=== PATIENT | female | born 1940 | race Caucasian/White ===

== ENCOUNTER 2018-09-26 01:28 | Outpatient (CLI) | payer MEDICARE, SELFPAY ==
--- NOTE | 2018-09-26 08:00 | SATEXT_ITS ---
Assessment: Ms. Ruiz presents for nutritional counseling for weight management nutrition therapy. She describes a long history of struggling with her weight as well as a long history of trying different methods to management her weight. She reports she is frustrated. She verbalizes that she knows how to eat healthfully. She reports that she generally eats in a controlled manner except that she has a fondness for cookies, candy, and crackers with butter. She reports that in particular, she eats crackers with butter while she cooks dinner daily as they are in the drawer near where she cooks. She states she is currently not very physically active as she needs a hip replaced and cannot move very well. She is 66 and 275 lbs. Nutritional Diagnosis: Class 3 obesity related to excess energy intake and physical inactivity. Intervention: We discussed that she does not need information on healthy eating or how much to eat. Her regular diet follows those guidelines. We worked instead on identifying some areas where she could change her behaviors. Suggested simply that she move the crackers and butter so she cannot access them while she cooks. She stated that she thought that would be a successful plan. We also came up with different ideas so as satisfy her sweet tooth. Ms. Ruiz stated she will try the alternatives we discussed. I also suggested the exercise program at [facility] which is designed to help people who have difficulty with movement. Ms. Ruiz stated that she will give them a call and check it out. Monitoring and Evaluation: 1. Ms. Ruiz will self monitor her progress on her action plans. 2. She will evaluate her nutrition care plan ongoing. At this time she does not have a follow up appointment. She has my contact information and is encouraged to follow up with me with any questions or concerns regarding her nutrition therapy. Thank you for the referral.
== END 2018-09-26 01:48 ==
PROVIDERS: PCP Family Medicine; Visit Provider Dietitian, Registered
DX: E66.9 Obesity, unspecified (principal); Z71.3 Dietary counseling and surveillance
CPT/HCPCS: 97802

== ENCOUNTER 2018-12-21 00:23 | Outpatient (CLI) | payer MEDICARE, SELFPAY ==
--- NOTE | 2018-12-21 09:44 | DI.MAMMO_ITS ---
SYMPTOMS/DIAGNOSIS: SCREENING, Z12.31 MAMMOGRAM: Mammograms were interpreted according to the usual protocol including computer analysis with CAD system, tomosynthesis and C view imaging. The breasts are of moderate radiodensity with fairly symmetrical distribution of fibroglandular tissue. No dominant mass or clumped microcalcification identified in either breast. Multiple focal areas of asymmetric density are seen bilaterally. These have a similar appearance to multiple previous examinations including December 2017, however, there is question of interval change in focal area of asymmetric density projected in the central portion of the left breast on CC and MLO views. Additional mammographic views with spot compression views of the left breast requested for further evaluation. CONCLUSION: Additional mammographic views of the left breast requested as described above. Breast ultrasound may be indicated as well depending on the results of the additional mammographic views. Category 0. Breast density Category B. MQSA ASSESSMENT OF FINDINGS: Incomplete: Needs additional imaging evaluation. Category 0. Patient will receive a letter notifying them of these results. BI-RADS category B. There are scattered areas of fibroglandular density.
== END 2018-12-21 00:43 ==
PROVIDERS: PCP Family Medicine; Visit Provider Family Medicine
DX: Z12.31 Encounter for screening mammogram for malignant neoplasm of breast (principal); R92.0 Mammographic microcalcification found on diagnostic imaging of breast
CPT/HCPCS: 77063; 77067

== ENCOUNTER 2018-12-27 00:24 | Outpatient (CLI) | payer MEDICARE, SELFPAY ==
--- NOTE | 2018-12-27 10:34 | DI.COMBO_ITS ---
SYMPTOM/DIAGNOSIS: F/U MAMMO, ? INTERVAL CHANGE IN ASYMMETRIC DENSITY CENTRAL PORTION LT BREAST LEFT BREAST ADDITIONAL VIEWS AND LEFT BREAST ULTRASOUND: Additional images are interpreted according to the usual protocol including tomosynthesis and 2D imaging. Additional mammographic views of the left breast and left breast ultrasound are interpreted in conjunction. These examinations were obtained to evaluate a questionable area of asymmetric density seen on recent mammogram. Additional mammographic views fail to show a discrete mass. Breast ultrasound shows no definite mass or cyst. CONCLUSION: No specific evidence of malignancy at this time. A follow up unilateral left breast mammogram recommended in 6 months. Category 3. Breast density, Category B. MQSA ASSESSMENT OF FINDINGS: Probably benign. Six month follow-up recommended. Category 3. Patient will receive a letter notifying them of these results. BI-RADS category B. There are scattered areas of fibroglandular density.
== END 2018-12-27 00:44 ==
PROVIDERS: PCP Family Medicine; Visit Provider Family Medicine
DX: Z12.31 Encounter for screening mammogram for malignant neoplasm of breast (principal); R92.8 Other abnormal and inconclusive findings on diagnostic imaging of breast; N64.59 Other signs and symptoms in breast
CPT/HCPCS: 76642; 77063; 77067

== ENCOUNTER → 2019-01-21 08:46 | Outpatient (BNVA) | payer MEDICARE, SELFPAY | PROVIDERS: PCP Family Medicine; Referring Provider Family Medicine; Visit Provider Physical Therapy Assistant | DX: Z12.11 Encounter for screening for malignant neoplasm of colon (principal); I10 Essential (primary) hypertension ==

== ENCOUNTER 2019-02-27 12:56 | Outpatient (CLI) | payer MEDICARE, SELFPAY | END 2019-02-27 13:16 | PROVIDERS: PCP Family Medicine; Visit Provider Surgery | DX: Z01.818 Encounter for other preprocedural examination (principal) ==

== ENCOUNTER → 2019-04-03 09:49 | Outpatient (BNVA) | payer MEDICARE, SELFPAY | PROVIDERS: PCP Family Medicine; Visit Provider Student in an Organized Health Care Education/Training Program | DX: I48.0 Paroxysmal atrial fibrillation (principal); I10 Essential (primary) hypertension; E78.00 Pure hypercholesterolemia, unspecified; Z01.810 Encounter for preprocedural cardiovascular examination | CPT/HCPCS: 99204; 99215 ==

== ENCOUNTER 2019-04-08 15:03 | Outpatient (CLI) | payer MEDICARE, SELFPAY ==
--- NOTE | 2019-04-08 14:53 | DI.RAD_ITS ---
SYMPTOM/DIAGNOSIS: LEFT KNEE PAIN LEG LENGTH EXAMINATION: Degenerative changes are seen of the knees bilaterally, right greater than left. The right lower extremity measures 95.4 cm The left lower extremity measures 96.9 cm.
--- NOTE | 2019-04-08 14:53 | DI.RAD_ITS ---
SYMPTOM/DIAGNOSIS: LEFT KNEE PAIN LEFT KNEE: Two views. There is moderate narrowing of the lateral femoral tibial joint space. There is periarticular spurring involving all joint compartments. The bones are intact and normally mineralized. The soft tissues are unremarkable. IMPRESSION: Moderate osteoarthritis of the left knee.
--- NOTE | 2019-04-08 14:53 | DI.RAD_ITS ---
SYMPTOM/DIAGNOSIS: LEFT HIP PAIN LEFT HIP: A single view is obtained. There is moderate narrowing of the joint space. Subchondral sclerosis and periarticular spurring is noted. The is a limited examination of the left hip. The soft tissues are unremarkable. IMPRESSION: Mild to moderate degenerative changes of the left hip.
== END 2019-04-08 15:23 ==
PROVIDERS: PCP Family Medicine; Referring Provider Family Medicine; Visit Provider Student in an Organized Health Care Education/Training Program
DX: M25.562 Pain in left knee (principal); M17.12 Unilateral primary osteoarthritis, left knee; M21.70 Unequal limb length (acquired), unspecified site; M25.552 Pain in left hip; M16.12 Unilateral primary osteoarthritis, left hip; M70.62 Trochanteric bursitis, left hip; I10 Essential (primary) hypertension
CPT/HCPCS: 20605; 99203; 99214; 73501; 73560; 77073; J1030

== ENCOUNTER → 2019-05-23 11:17 | Outpatient (BNVA) | payer MEDICARE, SELFPAY | PROVIDERS: PCP Family Medicine; Referring Provider Family Medicine; Visit Provider Student in an Organized Health Care Education/Training Program | DX: M25.562 Pain in left knee (principal); M25.552 Pain in left hip; I10 Essential (primary) hypertension; Z98.890 Other specified postprocedural states; M70.62 Trochanteric bursitis, left hip | CPT/HCPCS: 99213 ==

== ENCOUNTER 2019-06-24 00:59 | Outpatient (CLI) | payer MEDICARE, SELFPAY ==
--- NOTE | 2019-06-24 14:31 | DI.MAMMO_ITS ---
EXAM: MG MAMMO DIAGNOSTIC UNI CLINICAL HISTORY: F/U ABNL MAMMO, 6 MO F/U,R92.8. TECHNIQUE: Mammograms were interpreted according to the usual protocol including computer analysis w [employer] CAD system, tomosynthesis and C-view imaging. COMPARISON: Prior mammogram of December 2018 FINDINGS: Left breast mammogram was obtained today to follow areas of asymmetric density seen in left breast on most recent prior mammogram of December 2018. No significant change in appearance on today's examinati on. No new mass or clumped microcalcification. IMPRESSION: No specific evidence of malignancy, I would suggest that routine screening examinations resume with b ilateral mammogram in 6 months. Category 3, breast density category B. BI-RADS Cat 3 - Annual - Resume Annual Screening Breast Density - Category B - Scattered areas of fibroglandular density
== END 2019-06-24 01:19 ==
PROVIDERS: PCP Family Medicine; Visit Provider Family Medicine
DX: Z12.31 Encounter for screening mammogram for malignant neoplasm of breast (principal); R92.8 Other abnormal and inconclusive findings on diagnostic imaging of breast; N64.59 Other signs and symptoms in breast
CPT/HCPCS: 77061; 77065; G0279

== ENCOUNTER 2020-10-16 02:12 | Outpatient (CLI) | payer MEDICARE, SELFPAY ==
--- NOTE | 2020-10-16 | DI.MAMMO_ITS ---
EXAM: MG MAMMO SCREENING CLINICAL HISTORY: SCREENING, Z12.31 TECHNIQUE: Bilateral full field digital CC and MLO mammographic images were obtained with 3D tomosyn thesis and utilizing computer aided detection (CAD). COMPARISON: Available for comparison. FINDINGS: Masses/Architectural Distortion: Scattered fibro nodular densities are seen in both breasts. No susp icious masses or areas of architectural distortion are identified. Microcalcifications: No suspicious pleomorphic-type are seen. Skin Thickening/Nipple Retraction: None. IMPRESSION: 1. No significant interval change with no specific features of malignancy noted. 2. Unless there is more urgent need, screening mammography is recommended, as per [employer] guidelines. BI-RADS Category 2 - Benign Findings Breast Density - Category B - Scattered areas of fibroglandular density Breast density category C or D implies that the patient has dense breast tissue. Dense breast tissue is very common and is not abnormal but dense breast tissue can make it harder to find cancer on a ma mmogram. Also, dense breast tissue may increase their breast cancer risk. This information about the result of the mammogram report was provided to the patient to raise their awareness. Use this report when you speak with the patient about their risks for breast cancer, which includes their family hist ory. At that time, you may recommend for more screening tests (Ultrasound or MRI) as they might be us eful based on their risk. A negative radiographic report should not delay biopsy if a dominant or clinically suspicious mass is present. Up to ten percent of cancers are not identified on mammography. A negative report may reinforce clinical impression. Adenosis and dense breasts may obscure an underlying neoplasm. False positive reports average 6 to 10%. Patient will receive a letter notifying them of these results.
== END 2020-10-16 02:13 ==
PROVIDERS: PCP Family Medicine; Visit Provider Family Medicine
DX: Z12.31 Encounter for screening mammogram for malignant neoplasm of breast (principal)
CPT/HCPCS: 77063; 77067

== ENCOUNTER 2020-12-30 16:28 | Outpatient (REF) | payer MEDICARE, SELFPAY ==
[2020-12-30 14:08] LABS: HCT 40.4 % (36.0-46.0); HGB 12.4 g/dL (11.2-15.7); MCH 23.6 pg (27.0-33.0); MCHC 30.7 % (32.0-36.0); MPV 10.2 fL (8.0-11.0); Platelet Count 246 10^3/uL (130-400); RBC 5.25 10^6/uL (3.93-5.22); RDW 17.1 % (11.7-14.6); RDW-SD 47.9 fL
[2020-12-30 14:20] LABS: ALT 21 U/L (14-59); AST 17 U/L (15-37); Albumin 3.7 g/dL (3.4-5.0); Alkaline Phosphatase 117 U/L (46-116); Anion Gap 7.6 mmol/L (3-11); BUN 20 mg/dL (7-18); Bilirubin, Total 0.6 mg/dL (0.2-1.0); CO2 29.4 mmol/L (21.0-32.0); CREATININE 0.8 mg/dL (0.55-1.02); Calcium 8.9 mg/dL (8.5-10.1); Calculated LDL 138 mg/dL (<100); Chloride 109 mmol/L (98-107); Cholesterol 206 mg/dL (<200); Glucose 96 mg/dL (74-106); HDL Cholesterol 43 mg/dL (40-60); Potassium 4.4 mmol/L (3.5-5.1); Sodium 146 mmol/L (136-145); Total Protein 6.9 g/dL (6.4-8.2); Triglyceride 128 mg/dL (<150)
== END 2020-12-30 16:29 | disposition home or self-care (01) ==
LOC: NCHCN 16:28
PROVIDERS: PCP Family Medicine; Visit Provider Family Medicine
DX: I10 Essential (primary) hypertension (principal); I48.91 Unspecified atrial fibrillation; E66.9 Obesity, unspecified
CPT/HCPCS: 80053; 80061; 85027

== ENCOUNTER → 2021-05-27 08:47 | Outpatient (BNVA) | payer MEDICARE, SELFPAY | PROVIDERS: PCP Family Medicine; Referring Provider Family Medicine; Visit Provider Physical Therapy Assistant | DX: Z12.11 Encounter for screening for malignant neoplasm of colon (principal); I10 Essential (primary) hypertension ==

== ENCOUNTER 2021-06-15 03:05 | Outpatient (CLI) | payer MEDICARE, SELFPAY ==
[2021-06-15 10:46] LABS: Source Nasal/Nares
[2021-06-15 14:40] LABS: COVID-19 PCR Negative (Negative)
== END 2021-06-15 03:06 | disposition home or self-care (01) ==
LOC: LBO 03:06
PROVIDERS: PCP Family Medicine; Visit Provider Surgery
DX: Z20.822 Contact with and (suspected) exposure to COVID-19 (principal); Z01.818 Encounter for other preprocedural examination
CPT/HCPCS: 87635

== ENCOUNTER 2021-06-16 06:07 | Day surgery (SDC) | payer MEDICARE, SELFPAY ==
--- NOTE | 2021-06-16 06:10 | W.COLOREPORT ---
Colonoscopy Report Date of procedure: 06/16/21 Pre-op diagnosis general: Screening and changes in bowel habits Post-op diagnosis procedure note: other (mild diverticulosis) Procedure: Colonoscopy Surgeon: Belkys Anguiano Anesthesia Type: General:No Airway (Aman Grant CRNA) Estimated blood loss (mL): 0 Pathology: none sent Complications: None Disposition: same day Indications: The patient is here for Colonoscopy pre-op. Her last screening was in 2008 and was unremarkable. She has no family history of colon cancer. She has had bowel habit changes with urgency and loose stools after eating. -Discussed colonoscopy bowel prep as well as the procedure. Discussed possible complications of the procedure to include bleeding, pain, perforation, missed small lesion/polyp, sore throat, aspiration and adverse reaction to the medications. Questions were answered to patient?s satisfaction. No guarantees were implied or given. Prep: Miralax/Dulcolax Procedure Start Time: 07:38 Procedure End Time: 08:00 Retraction Time: 13 minutes Findings: Mild sigmoid diverticulosis Procedure Description: After informed consent was obtained the patient was taken to the procedure room and placed in a left decubitous position. Monitors were applied and a time out was done. The patients name, date of , procedure, allergies to medications and metal in their body was reviewed. The patient was then sedated. Once sedated and comfortable a rectal exam was done. External exam was normal. Internal exam revealed a normal sphincter tone and no palpable masses. The scope was then introduced and retro-flexed. No internal hemorrhoids, polyps or masses were identified on retro-flexion. The scope was then advanced to the cecum without difficulty. The ileocecal vlave and appendiceal orifice were identified. The prep was adequate. The scope was then slowly retracted over 13 minutes back into the rectum. There were no polyps. There was mild sigmoid diverticulosis noted. The scope was removed and the patient was woken up and taken back to Same day surgery in stable condition. The patient tolerated the procedure well and there were no immediate complications. Follow up: The patient should follow up as needed if they develop changes in bowel habits or other new gastrointestinal complaints.
--- NOTE | 2021-06-16 06:11 | W.PM.DSUDISC ---
Discharge Plan Disposition Patient Disposition: HOME Condition: Good Discharge Details Reason For Visit: Colonoscopy Attending Provider: Belkys Anguiano Primary Care Provider: Ciera Garcia Home Meds and New Rx's Prescriptions: Continued furosemide 40 MG tablet 20 mg PO DAILY PRNRF: 0 metoprolol tartrate 100 MG tablet 100 mg PO BID RF: 0 warfarin 5 MG tablet 5 mg PO HS RF: 0 acetaminophen 500 mg Capsule 500 mg PO QID PRNRF: 0 Discontinued bisacodyl [Dulcolax (bisacodyl)] 5 mg tablet,delayed release (DR/EC) 5 mg PO ONCE Qty: 4 RF: 0 polyethylene glycol 3350 17 gram/dose powder 238 g PO ONCE Qty: 238 RF: 0 Discharge Instructions Instructions: Diverticulosis (DC) Additional Instructions: Findings: mild diverticulosis Follow up: as needed Medication: Start Warfarin tonight. Follow up with your PCP on Monday for an INR check Please call if you develop: fevers >101.5 Nausea or Vomiting Abdominal pain that is not transient Rectal bleeding that is more then a tbsp A hard abdomen and inability to pass gas DAY SURGERY UNIT POST ENDOSCOPY INSTRUCTIONS Instructions for everyone who is given Anesthesia: For your safety, please do the following for the next 24 Hours: a. Do not drive or operate dangerous equipment b. Do not drink alcohol beverages or use any recreational drugs for the first 24 hours or while taking pain medications. The medications in your body may have a reaction that can be dangerous. c. Do not make any important decisions or sign any important papers 1. Generally there are no restrictions on your activity after a day or so has gone by, but you may feel a bit fatigued for a few days. 2. After you arrive home you may have a light meal and return to a normal diet as you can tolerate it without feeling sick to your stomach. 3. After surgery, you may feel pain or discomfort. This should be only transient, but if it persists please contact your doctor. 4. If there are any questions regarding the findings of your procedure, please feel free to contact your doctor. 6. If you are unable to contact your doctor with a problem, contact the hospital at [phone]. 7. Continue all your regular medications unless directed otherwise. I understand the above instructions and have no questions. Signature of Patient or Responsible Adult Escort Date/Time Name of Responsible Adult Escort Signature of Nurse Date/Time Activity:: Activity as Tolerated Diet:: high fiber Discharge Orders Discharge Orders: Discharge Order (Routine); Ordered 06/16/21 Ordered By: Belkys Anguiano
[2021-06-16 06:46] VITALS: BP 152/80; PULSE 70; RESP 16; TEMP 35.8; O2SAT 98
[2021-06-16] MEDS: Lactated Ringers 1,000 ML 80 ML IV (07:05)
--- NOTE | 2021-06-16 07:15 | ANES.PREOP_ITS ---
General Info Date of Service Date Performed: 06/16/21 Height: 5 ft 7 in Weight: 122.9 kg Body Mass Index (BMI): 42.4 Surgical Procedure: Operation Date: 06/16/21 07:35 Proposed Procedures Side Surgeon p Colonoscopy Belkys Anguiano MD Meds Allergies and Home Medications Allergies Allergy/AdvReac Type Severity Reaction Status Date / Time erythromycin base Allergy Intermediate Swelling/Ed Verified 06/16/21 06:40 ave neomycin Allergy Mild Verified 06/16/21 06:40 lisinopril AdvReac Intermediate Nausea Verified 06/16/21 06:40 bees stings Allergy Severe Anaphylaxsi Uncoded 06/16/21 06:40 s Home Medication Medication Instructions Recorded furosemide 20 mg PO DAILY PRN 05/08/16 metoprolol tartrate 100 mg PO BID 05/08/16 warfarin 5 mg PO HS 05/08/16 bisacodyl 5 mg tablet,delayed 5 mg PO ONCE #4 tab 05/27/21 release polyethylene glycol 3350 17 238 g PO ONCE #238 g 05/27/21 gram/dose oral powder acetaminophen [Tylenol Extra 500 mg PO QID PRN 06/16/21 Strength] Current Visit Medications: Current Medications Generic Name Dose Route Start Last Admin Trade Name Freq PRN Reason Stop Dose Admin Hyoscyamine Sulfate 0.125 mg 06/16/21 06:12 Hyoscyamine 0.125 Mg Sl/Oral/Chew SL DIRECTED PRN Ringer's Solution 1,000 mls @ 80 mls/hr 06/16/21 06:00 06/16/21 07:05 IV 07/15/21 23:59 80 mls/hr INFUSION ÁNGEL Administration IV Miscellaneous Supplies 1 each 06/16/21 06:00 Iv Access IV 07/15/21 23:59 DIRECTED ÁNGEL Ondansetron HCl 4 mg 06/16/21 06:12 Ondansetron 4 Mg/2 Ml Vial IVP Q4H PRN PRN Nausea / Vomiting Sodium Chloride 0 ml 06/16/21 06:00 Normal Saline Flush 10 Ml Syr IV 07/15/21 23:59 PRN PRN Sodium Chloride 0 ml 06/16/21 06:00 Normal Saline 10 Ml Vial IJ 07/15/21 23:59 DIRECTED PRN Sterile Water 0 ml 06/16/21 06:00 Water,Injection,Sterile 10 Ml Vial IJ 07/15/21 23:59 DIRECTED PRN PFSH Active Problems Active Problems: Problem Status Onset Code Encounter for screening colonoscopy Z12.11 Degenerative joint disease of left hip M16.12 Left knee DJD M17.12 Trochanteric bursitis, left hip M70.62 Hypercholesterolemia E78.00 Essential hypertension I10 PAF (paroxysmal atrial fibrillation) I48.0 Medical History Medical History (Updated 06/16/21 @ 06:45 by Cynthia Hooks) Anemia Atrial fibrillation Bunion Chronic left hip pain Chronic pain of left knee Dermatitis Essential hypertension FH: TIFFANY-BSO (total abdominal hysterectomy and bilateral salpingo-oophorectomy) Hip joint pain History of cardioversion Pt states multiple attemts to cardiovert, successful s/p sleep study w/3mo trial on CPAP. Hx of cataract Hx of ectopic Ruptured Hx of hematuria Hypercholesterolemia Incontinence Obesity BREEZY on CPAP PAF (paroxysmal atrial fibrillation) F/U with PCP Ciera Garcia Surgical History Surgical History (Updated 06/16/21 @ 06:44 by Cynthia Hooks) History of appendectomy History of right oophorectomy Hx of breast biopsy left Hx of colonoscopy Pt states virtual colonoscopy 2006 Hx of hysterectomy Hx of tooth extraction Tobacco Smoking/Tobacco Use Status: Former Tobacco Use Alcohol Alcohol Intake: current Alcohol intake frequency: holidays/special occasions only Alcohol type: hard liquor Substance Use Substance use: Never Substance use type: does not use Details: alcohol: about a year Vital Signs and Lab Results Vital Signs Most Recent Vital Signs in EMR: Most Recent Vital Signs Temp Pulse Resp BP Pulse Ox 35.8 C L 70 16 152/80 H 98 06/16/21 06:46 06/16/21 06:46 06/16/21 06:46 06/16/21 06:46 06/16/21 06:46 Lab Results Blood Type / Crossmatch: No Data to Display Complete Blood Count: No Data to Display Complete Metabolic Panel: No Data to Display Liver Function Panel: No Data to Display Coagulation Panel: No Data to Display Cardiac Panel: No Data to Display Arterial Blood Gas: No Data to Display Venous Blood Gas: No Data to Display Pancreas Panel: No Data to Display Thyroid Panel: No Data to Display Infectious Disease: Coronavirus (COVID-19)(PCR) Negative (Negative) 06/15/21 08:38 06/15/21 Coronavirus 2019 Source Nasal/Nares 06/15/21 08:38 06/15/21 Blood Cultures: No Data to Display Toxicology Panel: 2 No Data to Display Anesthesia Assessment and Plan Anesthesia History Personal History: No History of Anesthesia Complications Family History: No Family History of Anesthesia Complications Exercise Tolerance Exercise Tolerance: Metabolic Equivalents>4 Pertinent Negatives Pertinent Negatives: No Symptoms of GERD, No Major Cardiovascular Symptoms or Complaints (2 cardioversions for rapid atrial fibrillation) and No Major Pulmonary Symptoms or Complaints (BREEZY uses CPAP religiously) Cardiac & Pulmonary Exam Cardiac Exam: Normal S1/S2 Heart Sounds and Other Pulmonary Exam: Clear Bilateral Breath Sounds Airway Exam Known Difficult Airway: No Mallampati Class: 3 Mouth Opening: Normal (> 3cm) Thyromental Distance: Less than 3 cm Neck Range of Motion: Full ROM Neck Circumference: Thick Teeth Condition: Normal Dentition Airway Comments: Crowns in back x 2 ASA Classification ASA Score: ASA 3 Emergency Case?: No NPO Status NPO Status: NPO Clears >2 hours, Solids >8 hours Anesthesia Plan Resuscitation Status: Full Code Anesthesia Technique: General Anesthesia Airway Planned: Natural Airway Monitors Used: Standard Monitors
[2021-06-16 07:17] VITALS: BMI 42.4
[2021-06-16 08:10] VITALS: BP 104/55; PULSE 68; RESP 18; TEMP 36.1; O2SAT 95
--- NOTE | 2021-06-16 08:10 | W.ANESPOSTOP ---
Postoperative Evaluation Date, Time and Location Date Performed: 06/16/21 Time Performed: 08:10 Patient Location: Day Surgery Unit Vital Signs Most Recent Imported Vital Signs: Most Recent Vital Signs Temp Pulse Resp BP Pulse Ox 35.8 C L 70 16 152/80 H 98 06/16/21 06:46 06/16/21 06:46 06/16/21 06:46 06/16/21 06:46 06/16/21 06:46 Most Recent Manually Entered Vital Signs: Adult Blood Pressure: 104/55 Heart Rate: 66 Respirations: 18 Oxygen Saturation (%): 96 Temperature (C): 36.3 C Pain Score (0-10 Scale): 0 Pain Score Most Recent Pain Score: Most Recent Pain Score Pain Level 0 06/16/21 06:46 Assessment Mental Status: Awake (Alert & Oriented to Patient Baseline) Airway and Respiratory Function: Patent airway with normal (patient baseline) respiratory exam Cardiovascular Function: Hemodynamically Stable Hydration Status: Adequately Hydrated Nausea & Vomiting: No Nausea or Vomiting Pain: Pt. Denies Any Pain Peripheral Nerve Block: Patient did not receive a nerve block
[2021-06-16 08:11] VITALS: BP 104/55; PULSE 66; RESP 18; TEMPC 36.3; O2SAT 96
[2021-06-16 08:35] VITALS: BP 121/69; PULSE 63; RESP 20; TEMP 36; O2SAT 98
== END 2021-06-16 09:15 | disposition home or self-care (01) ==
PROVIDERS: PCP Family Medicine; Visit Provider Surgery
PROC: 0DJD8ZZ Inspection of Lower Intestinal Tract, Via Natural or Artificial Opening Endoscopic (ICD-10-PCS; CPT 45378; principal; 2021-06-16 07:30)
DX: Z12.11 Encounter for screening for malignant neoplasm of colon (principal); G47.33 Obstructive sleep apnea (adult) (pediatric); I10 Essential (primary) hypertension; D64.9 Anemia, unspecified; K57.30 Diverticulosis of large intestine without perforation or abscess without bleeding
CPT/HCPCS: G0121; J2001

== ENCOUNTER 2021-07-06 15:51 | Outpatient (REF) | payer MEDICARE, SELFPAY ==
[2021-07-07 20:47] LABS: Campylobacter PCR Negative (Negative); Salmonella PCR Negative (Negative); Shiga Toxin PCR Negative (Negative); Shigella/Enteroinvasive Ecoli Negative (Negative)
== END 2021-07-06 15:52 | disposition home or self-care (01) ==
LOC: NCHCN 15:51
PROVIDERS: PCP Family Medicine; Visit Provider Family Medicine
DX: K52.9 Noninfective gastroenteritis and colitis, unspecified (principal)
CPT/HCPCS: 87329; 87505; 83630; 87177

== ENCOUNTER 2021-07-28 14:26 | Emergency (ER) | payer MEDICARE, SELFPAY ==
[2021-07-28] VITALS (40 sets, daily range): BP systolic 131–160; BP diastolic 79–110; PULSE 63–147; RESP 15–29; TEMP 35.9; O2SAT 92–99
--- NOTE | 2021-07-28 14:15 | RT.EKG_ITS ---
APPROVED REPORT Exam: Resting ECG Reason for Exam: sob Patient Location: E HR:119 bpm ECG Measurements Heart Rate 119 AXIS HI [id number] P [id number] QRSd 83 QRS 16 QT 341 T 61 QTc 479 Conclusion Atrial fibrillation...V-rate 91-169, irreg A-activity Borderline ST depression, diffuse leads...ST <-0.07mV, ant/lat/inf
--- NOTE | 2021-07-28 14:45 | DI.RAD_ITS ---
Exam(s) XR CHEST 2V PA LATERAL EXAM: XR CHEST 2V PA LATERAL CLINICAL HISTORY: SOB, A-fib. TECHNIQUE: 2D digital imaging was performed. COMPARISON: CR BILATERAL HIPS ADULT from 06/28/2013 FINDINGS: Heart size is normal. The mediastinum is not widened. Lungs are clear. No infiltrates nor pleural effusions. IMPRESSION: No acute pulmonary findings. DATA REPOSITORY: RADIATION DOSE DELIVERED:
--- NOTE | 2021-07-28 14:48 | ED.GENADUL_ITS ---
Discharge Plan Disposition Patient Disposition: HOME Condition: Improving Discharge Details Clinical Impression: PAF (paroxysmal atrial fibrillation), CHF (congestive heart failure) Primary Care Provider: Ciera Garcia ED Provider: Flor Aguirre Home Meds and New Rx's Prescriptions: Continued furosemide 40 MG tablet 20 mg PO DAILY PRNRF: 0 metoprolol tartrate 100 MG tablet 100 mg PO BID RF: 0 warfarin 5 MG tablet 5 mg PO HS RF: 0 acetaminophen 500 mg Capsule 500 mg PO QID PRNRF: 0 Discharge Instructions Instructions: Heart Failure (ED), A-fib (Atrial Fibrillation) (ED) Additional Instructions: Your history, labs and exam are concerning for recurrence of your atrial fibrillation, likely associated with CHF. You received IV Lasix here. Please continue with your oral Lasix for the next 3 days, take your next dose tomorrow. Your INR was elevated at 3.4, please hold your dose tonight and discuss with your primary care tomorrow. Please take your evening dose of metoprolol today and continue with your typical dosing. Please keep your upcoming appointment with primary care. If you develop chest pain, shortness of breath, difficulty breathing, consider palpitations or other new/worsening symptoms please seek care urgently once again Referrals: Ciera Garcia [Primary Care Provider] - Discharge Data Discharge Date/Time-TO BE ENTERED AT DEPARTURE: 07/28/21 18:53 Medical Decision Making <Dora Giron - Last Filed: 07/30/21 13:15> 81-year-old female presents to the ER with chief complaint of shortness of breath and heart racing which has worsened over the last 3 to 4 days. Patient does have a history of atrial fibrillation and is on Coumadin 5 mg p.o. nightly and metoprolol 100 mg p.o. twice daily. She also does take furosemide 20 mg daily as needed. She also noted some increase bilateral lower extremity swelling which worsened today. She does have 2+ pitting edema to her bilateral lower extremities. Upon initial exam her heart rate is in the 140s, she is hypertensive. She is alert and oriented. She denies having any chest pain just shortness of breath. She denies cough or productive cough. She is vaccinated for Covid and has had a booster. Other past medical history includes obstructive sleep apnea uses a CPAP, obesity, abdominal hysterectomy she is a former smoker quit in 1959. Occasional drinker. Initial heart rate upon arrival is 144 and irregular consistent with A. fib. Work-up ordered including CBC, CMP, PT, PTT, BNP, chest x-ray EKG and serial troponins. Metoprolol 5 mg slow IV push ordered. 1508: Informed by clinical staff anesthesiologist that metoprolol was given slow IV push, patient reported improvement in the shortness of breath, heart rate is now in the mid 90s to 110, blood pressure is 154/97. Chest x-ray and labs are pending at this time. CBC is largely unremarkable, PT 33.2, INR 3.4 APTT 35.0 sodium is 146 potassium 4.5 chloride 109, GFR greater than 60 glucose 108 proBNP is 2427 which is up from 1600 in 2016. Initial troponin within normal limits. We will give 20 mg Furosemide IV. Care is to be handed off to oncoming provider WES Castaneda pending chest x- ray and repeat troponin. Discussed patient case and details with her she verbalizes understanding. Patient is hemodynamically stable and improving at the time of this dictation. <WES Garza - Last Filed: 07/28/21 18:30> Care transition myself from Tamiko Giron NP. Please see her initial note regarding history, presentation and exam. In brief, patient is a pleasant 81-year-old female with history of paroxysmal atrial fibrillation. Patient has been having palpitations for the past 3 days. Also noted increased lower extremity swelling. Patient's been diagnosed with atrial fibrillation initially having a rapid ventricular response with a heart rate in the 140s. Patient does take daily metoprolol. She is anticoagulated. Patient received 5 mg of IV Lopressor and heart rate at this time is in the 90s. Patient is asymptomatic. At the time I assumed care, chest x-ray and repeat troponin pending. Plan is to DC to home with the patient continuing with her anticoagulation and beta-abena with close follow-up with primary care. Patient repeat troponin remains within normal limits. Her INR was noted to be elevated at 3.4. We will have her hold her warfarin tonight, speak with her primary tomorrow and likely restart. Chest x-ray reviewed by radiologist: FINDINGS: Lungs: Unremarkable. No consolidation. Pleural spaces: Unremarkable. No pleural effusion. No pneumothorax. Heart/Mediastinum: Unremarkable. No cardiomegaly. Bones/joints: Unremarkable. IMPRESSION: No acute findings. Discussed these findings with the patient. Advised that she keep her metoprolol tonight. As we discussed, she will hold her warfarin today. She states that she typically checks her own INR on Fridays but will discuss warfarin dosing tomorrow with her primary care. She will continue with the metoprolol as prescribed. I advised that take her Lasix for the next 3 days. She has an appointment with her primary care next week which I encouraged that she keep. Return precautions were discussed. All of her questions and concerns were addressed and she is in agreement with plan HPI <Dora Giron - Last Filed: 07/30/21 13:15> General Mode of arrival: ambulatory . Date/Time Provider Initiated Documentation: 07/28/21 14:30 . Limitations to Documentation: no limitations . Information obtained by: patient, RN notes reviewed and old records reviewed . HPI Narrative: 81-year-old female presents to the ER with chief complaint of shortness of breath and heart racing which has worsened over the last 3 to 4 days. Patient does have a history of atrial fibrillation and is on Coumadin 5 mg p.o. nightly and metoprolol 100 mg p.o. twice daily. She also does take furosemide 20 mg daily as needed. She also noted some increase bilateral lower extremity swelling which worsened today. She does have 2+ pitting edema to her bilateral lower extremities. Upon initial exam her heart rate is in the 140s, she is hypertensive. She is alert and oriented. She denies having any chest pain just shortness of breath. She denies cough or productive cough. She is vaccinated for Covid and has had a booster. Other past medical history includes obstructive sleep apnea uses a CPAP, obesity, abdominal hysterectomy she is a former smoker quit in 1959. Occasional drinker. Related Data Home Medications Medication Instructions Recorded Confirmed furosemide 20 mg PO DAILY PRN 05/08/16 07/28/21 metoprolol tartrate 100 mg PO BID 05/08/16 07/28/21 warfarin 5 mg PO HS 05/08/16 07/28/21 acetaminophen 500 mg PO QID PRN 06/16/21 07/28/21 Allergies Allergy/AdvReac Type Severity Reaction Status Date / Time erythromycin base Allergy Intermediate Swelling/Ed Verified 07/28/21 14:37 ave neomycin Allergy Mild Verified 07/28/21 14:37 lisinopril AdvReac Intermediate Nausea Verified 07/28/21 14:37 bees stings Allergy Severe Anaphylaxsi Uncoded 07/28/21 14:37 s General Stated Complaint: Palpitatns CARINA: 2 Review of Systems <Dora Giron - Last Filed: 07/30/21 13:15> All systems reviewed & are unremarkable except as noted in HPI and below Constitutional Constitutional: Reports as per HPI Cardiovascular Cardiovascular: Denies chest pain, Denies chest pain with activity, Denies diaphoresis, Reports rapid heart rate, Reports pedal edema, Reports irregular heart rhythm, Denies claudication, Denies lightheadedness, Reports dyspnea, Reports dyspnea on exertion and Reports orthopnea Respiratory Respiratory: Denies change in phlegm color, Denies chest congestion, Denies cough, Denies hemoptysis, Denies excessive phlegm production, Reports dyspnea and Reports dyspnea on exertion Gastrointestinal Gastrointestinal: Denies abdominal pain, Denies diarrhea, Reports nausea and Denies vomiting Genitourinary Genitourinary: Denies difficulty voiding and Denies dysuria Musculoskeletal Musculoskeletal: Denies back pain and Denies myalgias PFSH <Dora Giron - Last Filed: 07/30/21 13:15> Active Problem List Encounter for screening colonoscopy (Acute) Degenerative joint disease of left hip (Acute) Left knee DJD (Acute) Trochanteric bursitis, left hip (Acute) Hypercholesterolemia (Acute) Essential hypertension (Acute) PAF (paroxysmal atrial fibrillation) (Acute) Medical History Anemia Atrial fibrillation Bunion Chronic left hip pain Chronic pain of left knee Dermatitis FH: TIFFANY-BSO (total abdominal hysterectomy and bilateral salpingo-oophorectomy) Hip joint pain History of cardioversion Pt states multiple attemts to cardiovert, successful s/p sleep study w/3mo trial on CPAP. Hx of cataract Hx of ectopic Ruptured 's Hx of hematuria Incontinence Obesity BREEZY on CPAP Surgical History History of appendectomy History of right oophorectomy Hx of breast biopsy left Hx of colonoscopy Pt states virtual colonoscopy 2005 Hx of hysterectomy Hx of tooth extraction Family History Mother Cancer Social History Smoking/Tobacco Use Status: Former Tobacco Use Quit Date: 09/11/1959 Smoking risk assessment performed?: Yes Alcohol Intake: current Alcohol Intake frequency: holidays/special occasions only Alcohol type: hard liquor Drug use: Never Substance use type: does not use Details: alcohol: about a year Do you feel safe at home: Yes Do you feel safe in your relationship?: Yes Exam <Dora Giron - Last Filed: 07/30/21 13:15> Narrative Exam Narrative: Constitutional: Alert and oriented x3. Appears stated age. Obese body habitus. Head: Normocephalic, no trauma. Eyes: Pupils PERRL, Red reflex noted, EOM's intact. Eyelids symmetrical without lesions, discharge, or swelling. ENT: Bilateral TM's WNL, External ear normal to inspection, no mastoid TTP, swelling, or erythema, Nasal turbinates WNL, no nasal discharge. Normal dentition, Posterior pharynx WNL, no exudate. Cardiovascular: Irregular rate atrial fibrillation with RVR at a rate of 144, normal S1, S2, distal pulses intact. 2+ pitting bilateral lower extremity edema noted. Resp: Lungs clear to auscultation bilaterally, no wheezes, rales, or rhonchi. Abdomen: Soft, non-distended, Normoactive bowel sounds all 4 quads. Musculoskeletal: Normal gait, 5/5 strength to all four extremities. Skin: No suspicious rashes or lesions. Capillary refill less than 2 sec. Neurologic: Cranial nerves II-XII intact. Alert and oriented x 3. Motor: No deficits noted. Sensory: Intact bilaterally all 4 extremities. Reflexes: DTR's intact bilaterally.. Hematologic/Lymphatic: No ecchymosis, no lymphadenopathy. Course <Dorasahra Giron - Last Filed: 07/30/21 13:15> Vital Signs Vital signs: Vital Signs Temperature 35.9 C L 07/28/21 14:31 Pulse 144 H 07/28/21 14:31 Respiratory Rate 29 H 07/28/21 14:31 Blood Pressure 154/110 H 07/28/21 14:31 Pulse Oximetry 97 07/28/21 14:31 Temperature 35.9 C L 07/28/21 14:31 Temperature Source Skin 07/28/21 14:31 Pulse 144 H 07/28/21 14:31 Respiratory Rate 29 H 07/28/21 14:31 Respiratory Effort Non-Labored 07/28/21 14:31 Blood Pressure 154/110 H 07/28/21 14:31 Blood Pressure Position Supine 07/28/21 14:31 Pulse Oximetry 97 07/28/21 14:31 Oxygen Delivery Method Room Air 07/28/21 14:31 Oxygen Flow Rate 0 07/28/21 14:31 Pain Level 0 07/28/21 14:31 Sign Out <Dora Giron - Last Filed: 07/30/21 13:15> Sign Out Data: Sign Out Comment: Pending repeat Trop and CXR. Afib, SOB, given 5mg Metoprolol IV and 20mg Furosemide IV Last updated by Dora Giron at 07/28/21 15:54
[2021-07-28 14:56] LABS: Abs Immature Grans 0.02 10^3/uL (0.0-0.06); Absolute Basophil Count 0.05 10^3/uL (0.0-0.2); Absolute Eosinophil Count 0.16 10^3/uL (0.0-0.7); Absolute Lymphocyte Count 2.38 10^3/uL (1.2-3.4); Absolute Monocyte Count 0.85 10^3/uL (0.1-0.8); Absolute Neutrophil Count 4.39 10^3/uL (1.2-6.7); Basophils % 0.6; HGB 12.2 g/dL (11.2-15.7); Immature Grans % 0.3; Lymphocytes % 30.3; MCH 23.1 pg (27.0-33.0); MCHC 29.8 % (32.0-36.0); MCV 77.8 fL (80-95); MPV 9.2 fL (8.0-11.0); Monocytes % 10.8; Nucleated RBC 0 %; Platelet Count 301 10^3/uL (130-400); RBC 5.27 10^6/uL (3.93-5.22); RDW 17.3 % (11.7-14.6); RDW-SD 48.7 fL; WBC 7.85 10^3/uL (4.4-10.8)
[2021-07-28] MEDS: Metoprolol 5 MG/5 ML VIAL IVP (14:59)
[2021-07-28 15:14] LABS: ALT 22 U/L (14-59); AST 12 U/L (15-37); Albumin 3.8 g/dL (3.4-5.0); Alkaline Phosphatase 113 U/L (46-116); BUN 14 mg/dL (7-18); Bilirubin, Total 0.9 mg/dL (0.2-1.0); CREATININE 0.9 mg/dL (0.55-1.02); Calcium 9.1 mg/dL (8.5-10.1); Chloride 109 mmol/L (98-107); Glucose 108 mg/dL (74-106); Magnesium 2.1 mg/dL (1.8-2.4); Potassium 4.5 mmol/L (3.5-5.1); Sodium 146 mmol/L (136-145); Total Protein 7.3 g/dL (6.4-8.2)
[2021-07-28 15:17] LABS: Troponin I < 0.05 ng/mL (<0.06)
[2021-07-28 15:18] LABS: NT-proBNP 2427 pg/mL (<300)
[2021-07-28 15:20] LABS: INR 3.4 (0.9-1.1); Prothrombin Time 33.2 sec (9.3-11.0)
[2021-07-28] MEDS: Furosemide 20 MG/2 ML VIAL IVP (15:33)
--- NOTE | 2021-07-28 17:08 | DI.VRAD_ITS ---
PROCEDURE INFORMATION: Exam: XR Chest Exam date and time: 07/28/2021 2:49 PM Age: 81 years old Clinical indication: Chest wall pain TECHNIQUE: Imaging protocol: XR of the chest. Views: 2 views. COMPARISON: No relevant prior studies available. FINDINGS: Lungs: Unremarkable. No consolidation. Pleural spaces: Unremarkable. No pleural effusion. No pneumothorax. Heart/Mediastinum: Unremarkable. No cardiomegaly. Bones/joints: Unremarkable. IMPRESSION: No acute findings. Dictated and Authenticated by: Brennan Erickson MD. Ordering:ZENIA John MD
[2021-07-28 18:08] LABS: Troponin I < 0.05 ng/mL (<0.06)
== END 2021-07-28 18:53 | disposition home or self-care (01) ==
PROVIDERS: Registered Nurse Emergency; Emergency Provider Physician Assistant; PCP Family Medicine
DX: I48.0 Paroxysmal atrial fibrillation (principal); I50.9 Heart failure, unspecified; R06.02 Shortness of breath
CPT/HCPCS: 36415; 80053; 93005; 96374; 96375; 99284; 71046; 83735; 83880; 84484; 85025; 85610; 85730; 93010; J1941

== ENCOUNTER 2021-10-08 04:02 | Outpatient (CLI) | payer MEDICARE, SELFPAY ==
[2021-10-08 13:05] LABS: Source Nasal/Nares
[2021-10-08 17:46] LABS: COVID-19 PCR Negative (Negative)
== END 2021-10-08 04:03 | disposition home or self-care (01) ==
LOC: LBO 04:06
PROVIDERS: PCP Family Medicine; Visit Provider Ophthalmology
DX: Z20.822 Contact with and (suspected) exposure to COVID-19 (principal)
CPT/HCPCS: 87635

== ENCOUNTER 2021-10-11 08:03 | Day surgery (SDC) | payer MEDICARE, SELFPAY ==
[2021-10-11 08:25] VITALS: BP 163/85; PULSE 91; RESP 18; TEMP 36; O2SAT 100
[2021-10-11] MEDS: Tropicam./Phenyleph. (1/2.5%) 5 ML BTL OD ×3 (08:38→08:56)
--- NOTE | 2021-10-11 08:40 | ANES.PREOP_ITS ---
General Info Date of Service Date Performed: 10/11/21 Height: 5 ft 8 in Weight: 127 kg Body Mass Index (BMI): 42.5 Surgical Procedure: Operation Date: 10/11/21 10:40 Proposed Procedures Side Surgeon p Cataract Extraction with IOL Implant Right Blayne Garcia MD Meds Allergies and Home Medications Allergies Allergy/AdvReac Type Severity Reaction Status Date / Time erythromycin base Allergy Intermediate Swelling/Ed Verified 10/11/21 08:33 ave neomycin Allergy Mild Verified 10/11/21 08:33 lisinopril AdvReac Intermediate Nausea Verified 10/11/21 08:33 bees stings Allergy Severe Anaphylaxsi Uncoded 10/11/21 08:33 s Home Medication Medication Instructions Recorded furosemide 20 mg PO DAILY PRN 05/08/16 metoprolol tartrate 100 mg PO BID 05/08/16 warfarin 5 mg PO HS 05/08/16 acetaminophen 500 mg PO QID PRN 06/16/21 albuterol sulfate [Ventolin HFA] 2 puff INHALATION Q4H PRN 10/08/21 epinephrine [EpiPen 2-Vipul] 0.3 mg IM ONCE 10/08/21 Current Visit Medications: Current Medications Generic Name Dose Route Start Last Admin Trade Name Freq PRN Reason Stop Dose Admin Acetaminophen 1,000 mg 10/11/21 06:00 Acetaminophen 500 Mg Tab PO Q4H PRN PRN Miscellaneous Medication 0 ml 10/11/21 06:00 Prednisolone 1%, Moxifloxacin 0.5%, Nepafenac 0.1% 5ml Btl OD DIRECTED [facility] Miscellaneous Medication 0 ml 10/11/21 06:00 10/11/21 08:38 Tropicam./Phenyleph. (1/2.5%) 5 Ml Btl OD 1 drp DIRECTED ÁNGEL Administration Tetracaine HCl 0 ml 10/11/21 06:00 Tetracaine 0.5% 4 Ml Btl OD DIRECTED [facility] PFSH Active Problems Active Problems: Problem Status Onset Code Cortical cataract of right eye H26.9 Nuclear sclerotic cataract of right eye H25.11 Encounter for screening colonoscopy Z12.11 Degenerative joint disease of left hip M16.12 Left knee DJD M17.12 Trochanteric bursitis, left hip M70.62 CHF (congestive heart failure) I50.9 Hypercholesterolemia E78.00 Essential hypertension I10 PAF (paroxysmal atrial fibrillation) I48.0 Medical History Medical History Anemia Atrial fibrillation Bunion Chronic left hip pain Chronic pain of left knee Dermatitis FH: TIFFANY-BSO (total abdominal hysterectomy and bilateral salpingo-oophorectomy) Hip joint pain History of cardioversion Pt states multiple attemts to cardiovert, successful s/p sleep study w/3mo trial on CPAP. Hx of cataract Hx of ectopic Ruptured Hx of hematuria Incontinence Obesity BREEZY on CPAP Surgical History Surgical History History of appendectomy History of right oophorectomy Hx of breast biopsy left Hx of colonoscopy 06/2021 complete colonoscopy w/ Dr. Jeannie Anguiano Pt states virtual colonoscopy 2006 Hx of hysterectomy Hx of tooth extraction Tobacco Smoking/Tobacco Use Status: Former Tobacco Use Alcohol Alcohol Intake: current Alcohol intake frequency: holidays/special occasions only Alcohol type: hard liquor Substance Use Substance use: Never Substance use type: does not use Details: alcohol: about a year Vital Signs and Lab Results Vital Signs Most Recent Vital Signs in EMR: Most Recent Vital Signs Temp Pulse Resp BP Pulse Ox 36.0 C L 91 H 18 163/85 H 100 10/11/21 08:25 10/11/21 08:25 10/11/21 08:25 10/11/21 08:25 10/11/21 08:25 Lab Results Blood Type / Crossmatch: No Data to Display Complete Blood Count: No Data to Display Complete Metabolic Panel: No Data to Display Liver Function Panel: No Data to Display Coagulation Panel: No Data to Display Cardiac Panel: No Data to Display Arterial Blood Gas: No Data to Display Venous Blood Gas: No Data to Display Pancreas Panel: No Data to Display Thyroid Panel: No Data to Display Infectious Disease: Coronavirus (COVID-19)(PCR) Negative (Negative) 10/08/21 09:00 10/08/21 Coronavirus 2019 Source Nasal/Nares 10/08/21 09:00 10/08/21 Blood Cultures: No Data to Display Toxicology Panel: No Data to Display Imaging and Studies Imaging and Studies Study information below may be from another EMR and interpreted by another provider. Please see original notes in EMR for more complete details. EKG Summary: DATE/TIME OF SERVICE: 07/28/21 1440 HR:119 bpm ECG Measurements Heart Rate 119 AXIS NC [id number] P [id number] QRSd 83 QRS 16 QT 341 T61 QTc 479 Conclusion Atrial fibrillation...V-rate 91-169, irreg A-activity Borderline ST depression, diffuse leads...ST <-0.07mV, ant/lat/inf Stress Test Summary: 12/22/2010:Indeterminate study. Follow up diagnosed with atypical chest pain that has been long standing. Echocardiogram Summary: 01/28/2016: [facility] [place]: EF 55%, Normal valves. Anesthesia Assessment and Plan Anesthesia History Personal History: No History of Anesthesia Complications Family History: No Family History of Anesthesia Complications Exercise Tolerance Exercise Tolerance: Metabolic Equivalents<4 Pertinent Negatives Pertinent Negatives: No Symptoms of GERD Cardiac & Pulmonary Exam Cardiac Exam: Normal S1/S2 Heart Sounds Pulmonary Exam: Clear Bilateral Breath Sounds Implantable Cardiac Device Does patient have a Pacemaker or an ICD?: No Airway Exam Known Difficult Airway: No Mallampati Class: 3 Mouth Opening: Normal (> 3cm) Thyromental Distance: Less than 3 cm Neck Range of Motion: Full ROM Neck Circumference: Thick Teeth Condition: Normal Dentition Airway Comments: Crowns in back x 2 ASA Classification ASA Score: ASA 3 Emergency Case?: No NPO Status NPO Status: NPO Clears >2 hours, Solids >8 hours Anesthesia Plan Resuscitation Status: Full Code Anesthesia Technique: MAC Anesthesia Airway Planned: Natural Airway Monitors Used: Standard Monitors
[2021-10-11 08:50] VITALS: BMI 42.5
[2021-10-11] MEDS: Tetracaine 0.5% 4 ML BTL OD (09:44)
[2021-10-11] MEDS: Balanced Salt Soln.-PLUS 500 ML BAG (09:45)
[2021-10-11] MEDS: Duovisc Viscoelastic System EACH 1 EACH (09:45)
[2021-10-11] MEDS: Lidocaine 2% Jelly 6 ML SYR (09:47)
[2021-10-11] MEDS: Povidone-Iodine Ophth 30 ML BTL (09:49)
--- NOTE | 2021-10-11 10:03 | W.PM.DSUDISC ---
Discharge Plan Disposition Patient Disposition: HOME Condition: Good Discharge Details Attending Provider: Blayne Garcia Primary Care Provider: Ciera Garcia Home Meds and New Rx's Prescriptions: No Action furosemide 40 MG tablet 20 mg PO DAILY PRNRF: 0 metoprolol tartrate 100 MG tablet 100 mg PO BID RF: 0 warfarin 5 MG tablet 5 mg PO HS RF: 0 albuterol sulfate [Ventolin HFA] 90 mcg/actuation Hfa Aerosol Inhaler 2 puff INHALATION Q4H PRNRF: 0 epinephrine [EpiPen 2-Vipul] 0.3 mg/0.3 mL Auto-Injector 0.3 mg IM ONCE RF: 0 acetaminophen 500 mg Capsule 500 mg PO QID PRNRF: 0 Discharge Instructions Stand Alone Forms: Post-op Topical Cataract, Braden Hedrick (DSU) Discharge Orders Discharge Orders: Discharge Order (Routine); Ordered 10/11/21 Ordered By: Blayne Garcia DS: Diagnosis Discharge Diagnosis (1) Cortical cataract of right eye: Status: Resolved (2) Nuclear sclerotic cataract of right eye: Status: Resolved
--- NOTE | 2021-10-11 10:04 | ROE_ITS ---
Date of service: 10/11/21 Time of Service: 10:04 Operative Note Operative Note DATE OF PROCEDURE: 10/11/21 PRE-OP DIAGNOSIS: Nuclear/cortical cataract, right eye POST-OP DIAGNOSIS: same PROCEDURE: Cataract extraction using phacoemulsification with intraocular lens implant, left eye SURGEON: Blayne Garcia ANESTHESIA TYPE: Local By Surgeon and MAC Refer to Anesthesia Record PATHOLOGY: none sent COMPLICATIONS: None Patient was transported to: same day Patient's condition: stable Implants: [employer] / [employer] Tecnis [id number] Indications: Progressive decreased vision due to cataract, left eye Procedure Description: CATARACT SURGERY OPERATIVE REPORT PREOPERATIVE DIAGNOSIS: 1. Nuclear/cortical cataract, right eye POSTOPERATIVE DIAGNOSIS: Same OPERATION: 1. Cataract extraction using phacoemulsification with posterior chamber intraocular lens implant, left eye. IOL: IOL Concrete Bucket Hooker/Model: [employer] Todd / KENA Tecnis [id number] IOL Power: + 17.0 diopters IOL Serial Number: [id number] Optic Diameter: 6.0 mm Haptic/Overall Diameter: 13.0 mm PHACO INFO: [employer] Vision System with OZil and Active [employer]uidics Cumulative Dispersed Energy (CDE): 8.66 seconds SURGEON: Blayne Garcia MD, TAMI ANESTHESIA: Monitored A [facility] (MAC), with local sub-tenon's anesthetic infiltration COMPLICATIONS: None SPECIMENS: None INDICATIONS FOR PROCEDURE: The patient is an 81-year-old lady with history of diminished visual acuity in her right eye secondary to the development of nuclear and cortical cataract. The option of cataract surgery was offered to the patient and she felt she was symptomatic enough that she wished to proceed. PROCEDURE: The correct surgical eye was identified and marked as the left eye and the pupil was dilated in the preoperative area using mydriatics and cycloplegics. The dilated pupil size was 6.0 mm. She elected to proceed without oral sedation. The patient was brought to the operating room where cardiopulmonary monitoring was instituted and surgical time-out was performed, confirming the correct operative eye and IOL power. Topical anesthesia was administered and ophthalmic povidone-iodine 5% was instilled into the conjunctival fornices. Lidocaine gel was applied to the cornea and the obdulia-ocular area was prepped with Betadine 10% solution and draped in the usual sterile fashion for intraocular surgery, including an a perture drape. A Tegaderm transparent film dressing was cut in half and used to cover the lashes and lid margins. Care was taken to sequester the lashes and lid margins under the Tegaderm dressing. A lid speculum was placed between the lids of the operative eye and the Cheyenne-Jeanmarie operating microscope was maneuvered into position. Jose scissors were then used to make a conjunctival buttonhole approximately 6mm posterior to the limbus in the inferonasal quadrant. Blunt dissection was carried out to expose bare sclera, and a blunt-tipped sub-tenon?s anesthesia cannula was introduced and passed posteriorly along the globe where non- preserved plain lidocaine was injected into posterior sub-Tenon?s space. A sideport knife was used to make a paracentesis port superiorly/superiortemporal ly. Intraocular phenylephrine/lidocaine was injected int the anterior chamber.. The anterior chamber was filled with viscoelastic. A 2.4mm keratome knife was used to create a half-thickness groove at the limbus and then to construct a three-plane near-clear corneal tunnel extending 2.0mm into clear cornea at the 3:00 position. A flap was raised on the anterior capsule and capsulorhexis forceps were used to complete a continuous curvilinear capsulorhexis of 5.0 mm. Balanced salt solution was then used to perform cortical cleaving hydrodissection and nuclear hydrodelineation until the lens could be freely rotated within the capsular bag. The lens nucleus was then disassembled and removed within the capsular bag and iris plane using phacoemulsification. Residual cortical material was removed using the 45-degree angled silicone I/A tip with 0.3mm port. The posterior capsule was carefully polished to remove as much residual lens epithelial cells as safely possible. The capsular bag was then inflated and the anterior chamber deepened with viscoelastic. The lens implant described above was inserted into the capsular bag using the KENA Andreafski Injector. A Kuglen hook was used to dial the IOL into position. Residual viscoelastic was then removed first from posterior to the IOL, then from the anterior chamber using the I/A handpiece. The lens implant was noted to center nicely within the capsular bag. The incisions were stromally hydrated, and the anterior chamber was reformed using BSS. Then 0.5cc of moxifloxacin 1.0mg/ml were injected into the capsular bag and anterior chamber. The incisions were checked with a Weck spear and found to be secure. Several drops of ophthalmic povidone-iodine 5% were then applied to the eye followed by two drops of Imprimis combination prednisolone/moxifloxacin/nepafenac solution. The drapes were removed and a clear plastic protective eye shield was placed over the eye. The patient was then returned to [facility] in stable condition.
[2021-10-11 10:05] VITALS: BP 148/100; PULSE 101; RESP 16; TEMP 36.4; O2SAT 99
--- NOTE | 2021-10-11 20:58 | W.ANESPOSTOP ---
Postoperative Evaluation Date, Time and Location Date Performed: 10/11/21 Time Performed: 10:10 Patient Location: Day Surgery Unit Vital Signs Most Recent Imported Vital Signs: Most Recent Vital Signs Temp Pulse Resp BP Pulse Ox 36.4 C L 101 H 16 148/100 H 99 10/11/21 10:05 10/11/21 10:05 10/11/21 10:05 10/11/21 10:05 10/11/21 10:05 Pain Score Most Recent Pain Score: Most Recent Pain Score Pain Level 0 10/11/21 10:05 Assessment Mental Status: Awake (Alert & Oriented to Patient Baseline) Airway and Respiratory Function: Patent airway with normal (patient baseline) respiratory exam Cardiovascular Function: Hemodynamically Stable Hydration Status: Adequately Hydrated Nausea & Vomiting: No Nausea or Vomiting Pain: Pt. Denies Any Pain Peripheral Nerve Block: Patient did not receive a nerve block
--- NOTE | 2022-03-18 13:10 | ROE_ITS ---
Date of service: 10/11/21 Time of Service: 10:04 Operative Note Operative Note DATE OF PROCEDURE: 10/11/21 PRE-OP DIAGNOSIS: Nuclear cataract, right eye POST-OP DIAGNOSIS: same PROCEDURE: [employer] / [employer] Tecnis [id number] SURGEON: Blayne Garcia ANESTHESIA TYPE: Local By Surgeon and MAC Refer to Anesthesia Record ESTIMATED BLOOD LOSS: 0 PATHOLOGY: none sent COMPLICATIONS: None Patient was transported to: same day Patient's condition: stable Implants: [employer] / [employer] Tecnis [id number] Indications: Progressive visual loss due to cataract, right eye Procedure Description: CATARACT SURGERY OPERATIVE REPORT PREOPERATIVE DIAGNOSIS: 1. Nuclear cataract, right eye POSTOPERATIVE DIAGNOSIS: Same OPERATION: 1. Cataract extraction using phacoemulsification with posterior chamber intraocular lens implant, right eye. IOL: IOL Field Hand/Model: [employer] Todd / KENA Tecnis [id number] IOL Power: + 17.0 diopters IOL Serial Number: [id number] Optic Diameter: 6.0mm Haptic/Overall Diameter: 13.0mm PHACO INFO: [employer] Vision System with OZil and Active Fluidics Cumulative Dispersed Energy (CDE): 8.66 seconds SURGEON: Blayne Garcia MD, TAMI ANESTHESIA: Monitored Anesthesia Care (MAC), with local sub-tenon's anesthetic infiltration COMPLICATIONS: None SPECIMENS: None INDICATIONS FOR PROCEDURE: Patient is an 81-year-old lady with history of diminished visual acuity in both eyes secondary to the development of bilateral nuclear cataract. She is significantly symptomatic that she desires cataract surgery and attempt to improve and maximize her vision. The option of cataract surgery was offered to the patient and she wished to proceed. PROCEDURE: The correct surgical eye was identified and marked as the right eye and the pupil was dilated in the preoperative area using mydriatics and cycloplegics. The dilated pupil size was 6.0 mm. The patient elected to proceed without oral sedation. The patient was brought to the operating room where cardiopulmonary monitoring was instituted and surgical time-out was performed, confirming the correct operative eye and IOL power. Topical anesthesia was administered and ophthalmic povidone-iodine 5% was instilled into the conjunctival fornices. Lidocaine gel was applied to the cornea and the obdulia-ocular area was prepped with Betadine 10% solution and draped in the usual sterile fashion for intraocular surgery, including an aperture drape. A Tegaderm transparent film dressing was cut in half and used to cover the lashes and lid margins. Care was taken to sequester the lashes and lid margins under the Tegaderm dressing. A lid speculum was placed between the lids of the operative eye and the Mike [employer] Rev[employer] operating microscope was maneuvered into position. Jose scissors were then used to make a conjunctival buttonhole approximately 6mm posterior to the limbus in the inferonasal quadrant. Blunt dissection was carried out to expose bare sclera, and a blunt-tipped sub-tenon?s anesthesia cannula was introduced and passed posteriorly along the globe where non- preserved plain lidocaine was injected into posterior sub-Tenon?s space. A sideport knife was used to make a paracentesis port inferotemporally. Intraocular phenylephrine/lidocaine was injected into the anterior chamber. The anterior chamber was filled with viscoelastic. A keratome knife was used to construct a 2-plane near-clear corneal tunnel extending 2.0mm into clear cornea superiortemporally. A flap was raised on the anterior capsule and capsulorhexis forceps were used to complete a continuous curvilinear capsulorhexis of 5.0 mm. Balanced salt solution was then used to perform cortical cleaving hydrodissection and nuclear hydrodelineation until the lens could be freely rotated within the capsular bag. The lens nucleus was then disassembled and removed within the capsular bag and iris plane using phacoemulsification. Residual cortical material was removed using the I/A handpiece. The posterior capsule was carefully polished to remove as much residual lens epithelial cells as safely possible. The capsular bag was then inflated and the anterior chamber deepened with viscoelastic. The lens implant described above was inserted into the capsular bag using the KENA [employer] Injector. A Kuglen hook was used to dial the IOL into position. Residual viscoelastic was then removed first from posterior to the IOL, then from the anterior chamber using the I/A handpiece. The lens implant was noted to center nicely within the capsular bag. The incisions were stromally hydrated, and the anterior chamber was reformed using BSS. Then 0.5cc of moxifloxacin 1.0mg/ml were injected into the capsular bag and anterior chamber. The incisions were checked with a Weck spear and found to be secure. Several drops of ophthalmic povidone-iodine 5% were then applied to the eye followed by two drops of Imprimis combination prednisolone/moxifloxacin/nepafenac solution. The drapes were removed and a clear plastic protective eye shield was placed over the eye. The patient was then returned to [facility] Surgery in stable condition.
== END 2021-10-11 10:31 | disposition home or self-care (01) ==
PROVIDERS: PCP Family Medicine; Visit Provider Ophthalmology
PROC: (CPT 66984; principal; 2021-10-11 10:30)
DX: H25.11 Age-related nuclear cataract, right eye (principal); G47.33 Obstructive sleep apnea (adult) (pediatric); E78.00 Pure hypercholesterolemia, unspecified; I48.0 Paroxysmal atrial fibrillation
CPT/HCPCS: 66984; V2632

== ENCOUNTER 2021-11-08 00:48 | Outpatient (CLI) | payer MEDICARE, SELFPAY ==
--- NOTE | 2021-11-08 | DI.MAMMO_ITS ---
Exam(s) MAMMO SCREENING EXAM: MAMMO SCREENING CLINICAL HISTORY: SCREENING MAMMO FOR BREAST CANCER Z12.31 TECHNIQUE: Mammograms were interpreted according to the usual protocol including computer analysis w Listen Edition CAD system, tomosynthesis and C-view imaging. COMPARISON: 2011 through 2020 FINDINGS: The breasts are composed of scattered fibroglandular densities, Breast Density category B. No suspicious masses or suspicious microcalcifications are seen. Benign calcifications are again not ed bilaterally. No skin thickening or abnormal axillary lymph nodes are seen. There has been no significant change from prior exams. IMPRESSION: BI-RADS Cat 2 - Benign Findings Yearly screening mammography is recommended. Breast Density - Category B, scattered fibroglandular densities. A negative radiographic report should not delay biopsy if a dominant or clinically suspicious mass is present. Up to ten percent of cancers are not identified on mammography. A negative report may reinforce clinical impression. Adenosis and dense breasts may obscure an underlying neoplasm. False positive reports average 6 to 10%. Patient will receive a letter notifying them of these results.
== END 2021-11-08 01:08 ==
PROVIDERS: PCP Family Medicine; Visit Provider Family Medicine
DX: Z12.31 Encounter for screening mammogram for malignant neoplasm of breast (principal)
CPT/HCPCS: 77063; 77067

== ENCOUNTER 2022-02-14 09:46 | Outpatient (REF) | payer MEDICARE, SELFPAY ==
[2022-02-14 15:01] LABS: Abs Immature Grans 0.02 10^3/uL (0.0-0.06); Absolute Basophil Count 0.05 10^3/uL (0.0-0.2); Absolute Eosinophil Count 0.14 10^3/uL (0.0-0.7); Absolute Monocyte Count 0.59 10^3/uL (0.1-0.8); Absolute Neutrophil Count 3.89 10^3/uL (1.2-6.7); Basophils % 0.8; Eosinophils % 2.3; HCT 41.5 % (36.0-46.0); HGB 12.4 g/dL (11.2-15.7); Immature Grans % 0.3; Lymphocytes % 24.2; MCH 23.1 pg (27.0-33.0); MCHC 29.9 % (32.0-36.0); MCV 77 fL (80-95); Monocytes % 9.5; Neutrophils % 62.9; Platelet Count 265 10^3/uL (130-400); RBC 5.36 10^6/uL (3.93-5.22); RDW 18.8 % (11.7-14.6); RDW-SD 51.2 fL; WBC 6.19 10^3/uL (4.4-10.8)
[2022-02-14 15:19] LABS: ALT 27 U/L (14-59); AST 16 U/L (15-37); Albumin 3.9 g/dL (3.4-5.0); Alkaline Phosphatase 108 U/L (46-116); Anion Gap 8.7 mmol/L (3-11); BUN 21 mg/dL (7-18); Bilirubin, Total 0.9 mg/dL (0.2-1.0); CO2 28.3 mmol/L (21.0-32.0); CREATININE 0.9 mg/dL (0.55-1.02); Calcium 9.1 mg/dL (8.5-10.1); Chloride 105 mmol/L (98-107); Glucose 107 mg/dL (74-106); NT-proBNP 1624 pg/mL (<300); Potassium 4.2 mmol/L (3.5-5.1); Sodium 142 mmol/L (136-145)
== END 2022-02-14 09:47 | disposition home or self-care (01) ==
LOC: NCHCN 09:46
PROVIDERS: PCP Family Medicine; Visit Provider Registered Nurse
DX: R60.0 Localized edema (principal); I48.91 Unspecified atrial fibrillation; I50.9 Heart failure, unspecified
CPT/HCPCS: 80053; 83880; 85025

== ENCOUNTER → 2022-02-24 03:05 | Outpatient (CLI) | payer MEDICARE, SELFPAY ==
--- NOTE | 2022-02-24 14:55 | DI.US_ITS ---
APPROVED REPORT EXAM: Comprehensive 2D, Doppler, and color-flow Echocardiogram Patient Location: Out-Patient [facility] Rental Manager: Mary Max RDCS (AE) Indications: A Fib, Edema Other Information Study Quality: Fair. Technically limited study due to body habitus. Conclusion Normal left ventricular wall thickness and chamber size. Estimated ejection fraction is 55%. Wall m otion appears normal Normal right ventricular size. The right ventricle appears mildly hypocontractile Both atria are moderately dilated Aortic valve is sclerotic and trileaflet with trace regurgitation. There is no aortic stenosis Normal mitral valve with moderate regurgitation Normal tricuspid valve with moderate regurgitation. Estimated right ventricular systolic pressure is 29 mmHg Mildly dilated ascending aorta measuring 3.45 cm Wall motion Left Ventricle The left ventricle is normal size. The overall left ventricular systolic function appears normal. The re is normal left ventricular wall thickness. Regional wall motion is grossly normal. There is no yogi tricular septal defect visualized. LVEF is 55%. Right Ventricle The right ventricle is normal size. Right ventricle is mildly hypokinetic. The RVSP is 29.0 mmHg. Atria Left atrium is moderately dilated. Right atrium is moderately dilated. The interatrial septum is inta ct with no evidence for an atrial septal defect. Aortic Valve The Aortic valve is sclerotic. Aortic valve is trileaflet. There is no aortic valvular stenosis. Trac e aortic regurgitation. Mitral Valve The mitral valve is normal in structure. No evidence of mitral valve stenosis. Moderate mitral regurg itation. Tricuspid Valve The tricuspid valve is normal in structure. There is no tricuspid valve stenosis. Moderate tricuspid regurgitation. Pulmonic Valve Pulmonic valve is not well visualized. There is no pulmonic valvular stenosis. Trace pulmonic regurgi tation. Great Vessels The aortic root is normal in size. The ascending aorta is mildly dilated. Aortic arch is normal in ca liber. IVC is normal in size and collapses >50% with inspiration. Pericardium There is no pericardial effusion. 2D Dimensions IVSD d PLAX 0.75 cm F: 0.6-1.0 LV Vol A2C d MOD 95.7 mL LVPW d PLAX 0.76 cm F: 0.6 - 1.0 LV Vol A4C d MOD 92.9 mL LVID d PLAX 4.63 cm F: 3.8 - 5.2 LA vol/ BSA A4C s A-L 35.5 mL/m2 LVDs 3.35 cm F: 2.2 - 3.5 LA Area A4C s MOD 24.96 cm2 Ao Root d 2.36 cm F: 2.7 - 3.3 LV EF A4C MOD 55.0 % RA Area A4C 19.94 cm2 LV EF A2C MOD 55.9 % RA Vol/ BSA A4C s A-L 25.0 mL/m2 LV EF Biplane MOD 55.6 % Ao Asc Diam d 3.46 cm F: 2.3 - 3.1 SV 55.56 mL LV EF Teichholz 52.7 % SV Index 24.26 mL/m2 LVEF (Osman's) 55.64 % F: 54 - 74 LV Volume 71.73 mL F: 46 - 106 LV Volume Index 31.32 mL/m2 F: 29 - 61 LV Vol Biplane MOD 99.9 mL FS 27.00 % M-Mode TAPSE 1.61 cm (M/F) >1.7 LV Diastology MV E Vmax 0.96 (0.4-1.3 m/s) Aortic Valve LVOT Area 2.64 cm2 AoV Area Vmax 1.53 cm2 LVOT Vmax 0.79 m/s AoV Area/ BSA (Vmax) 0.67 cm2/m2 LVOT Mean Vivek. 0.52 m/s NANCY Mean Vivek. 1.32 cm2 LVOT Peak Grad 2.5 mmHg NANCY Mean Vivek. Index 0.58 cm2/m2 LVOT Mean Grad 1.3 mmHg LVOT VTI 0.157 m LVOT Diam s 1.80 cm AoV Vmax 1.35 m/s Velocity Ratio 0.58 AoV Mean Vivek. 1.04 m/s AoV Peak Grad 7.3 mmHg LVOT SV 41.50 mL AoV Mean Grad 4.6 mmHg AoV VTI 0.276 m AoV Area VTI 1.50 cm2 AoV Area/ BSA (VTI) 0.66 cm/m2 Mitral Valve MV DT 189 (160-240 msec) MR Vmax 4.92 m/s MV PHT 55 msec MR VTI 1.600 m MV Area PHT 4.00 cm2 MR Peak Grad 96.9 mmHg MV VTI 0.197 m MR Mean Grad 70.6 mmHg MV VTI Annulus 0.189 m MV Area VTI 2.02 (4.0-6.0 cm2) Pulmonary Valve PV Vmax 0.77 (0.5-1.5 m/s) RVOT Peak Gr. 1.38 mmHg PV Peak Grad 2.3 mmHg RVOT Mean Gr. 0.95 mmHg PV Mean Grad 1.2 mmHg RVOT VTI 0.120 m PV VTI 0.143 m RVOT Vmax 0.59 m/s Tricuspid Valve TR Peak Grad 26.0 mmHg TR Vmax 2.55 m/s RA Pressure 3.00 mmHg RVSP (TR) 29.0 mmHg
== END ==
PROVIDERS: PCP Family Medicine; Visit Provider Family Medicine
DX: I48.91 Unspecified atrial fibrillation (principal)
CPT/HCPCS: 93306

== ENCOUNTER 2022-02-28 08:54 | Outpatient (CLI) | payer MEDICARE, SELFPAY ==
--- NOTE | 2022-02-28 08:45 | RT.EKG_ITS ---
APPROVED REPORT Exam: Resting ECG Reason for Exam: paf Patient Location: O HR:114 bpm ECG Measurements Heart Rate 114 AXIS MT [id number] P [id number] QRSd 95 QRS 10 QT 336 T 3 QTc 463 Conclusion Atrial fibrillation...V-rate 81-144, irreg A-activity Low voltage, precordial leads...precordial leads <1.0mV Borderline T wave abnormalities...T/QRS ratio < 1/20 or flat T
== END 2022-02-28 08:55 | disposition home or self-care (01) ==
LOC: DI.CARD 08:54
PROVIDERS: PCP Family Medicine; Visit Provider Internal Medicine Cardiovascular Disease
DX: I48.0 Paroxysmal atrial fibrillation (principal)
CPT/HCPCS: 93010

== ENCOUNTER → 2022-02-28 13:43 | Outpatient (BNVA) | payer MEDICARE, SELFPAY | PROVIDERS: PCP Family Medicine; Referring Provider Family Medicine; Visit Provider Internal Medicine Cardiovascular Disease | DX: I48.0 Paroxysmal atrial fibrillation (principal) | CPT/HCPCS: 93005; 99204; 99213 ==

== ENCOUNTER 2022-03-07 06:52 | Day surgery (SDC) | payer MEDICARE, SELFPAY ==
[2022-03-07] MEDS: Tropicam./Phenyleph. (1/2.5%) 5 ML BTL OS ×3 (07:18→07:30)
[2022-03-07 07:20] VITALS: BP 135/103; PULSE 87; RESP 18; TEMP 35.9; O2SAT 99
--- NOTE | 2022-03-07 07:51 | W.ANESPRE ---
General Info Date of Service Date Performed: 03/07/22 Height: 5 ft 7 in Weight: 123 kg Body Mass Index (BMI): 42.5 Surgical Procedure: Operation Date: 03/07/22 08:40 Proposed Procedure Side Surgeon p Cataract Extraction with IOL Implant Left Blayne Garcia MD Meds Allergies and Home Medications Allergies Allergy/AdvReac Type Severity Reaction Status Date / Time neomycin Allergy Mild swelling Verified 03/07/22 07:47 and edema lisinopril AdvReac Intermediate Nausea Verified 03/07/22 07:16 bees stings Allergy Severe Anaphylaxsi Uncoded 03/07/22 07:16 s Home Medication Medication Instructions Recorded furosemide 40 mg tablet 30 mg PO DAILY 05/08/16 metoprolol tartrate 100 mg tablet 100 mg PO BID 05/08/16 warfarin 5 mg tablet 5 mg PO HS 05/08/16 acetaminophen 500 mg capsule 500 mg PO QID PRN 06/16/21 albuterol sulfate 90 mcg/actuation 2 puff inhalation Q4H PRN 10/08/21 aerosol inhaler (Ventolin HFA) epinephrine 0.3 mg/0.3 mL 0.3 mg IM ONCE 10/08/21 injection, auto-injector (EpiPen 2-Vipul) Current Visit Medications: Current Medications Generic Name Dose Route Start Last Admin Trade Name Freq PRN Reason Stop Dose Admin Acetaminophen 1,000 mg 03/07/22 06:00 Acetaminophen 500 Mg Tab PO Q4H PRN PRN Miscellaneous Medication 0 ml 03/07/22 06:00 Prednisolone 1%, Moxifloxacin 0.5%, Nepafenac 0.1% 5ml Btl OS DIRECTED [facility] Miscellaneous Medication 0 ml 03/07/22 06:00 03/07/22 07:30 Tropicam./Phenyleph. 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 HTN (hypertension) Hx of cataract Hx of ectopic Ruptured Hx of hematuria Incontinence Obesity BREEZY on CPAP Medical History Comments:: unable to lay flat; prefers BP on forearm Surgical History Surgical History History of appendectomy History of right oophorectomy Hx of breast biopsy left Hx of colonoscopy 06/2021 complete colonoscopy w/ Dr. Jeannie Anguiano Pt states virtual colonoscopy 2005 Hx of hysterectomy Hx of tooth extraction Tobacco Smoking/Tobacco Use Status: Former Tobacco Use Alcohol Alcohol Intake: current Alcohol intake frequency: holidays/special occasions only Alcohol type: hard liquor Substance Use Substance use: Never Substance use type: does not use Vital Signs and Lab Results Vital Signs Most Recent Vital Signs in EMR: Most Recent Vital Signs Temp Pulse Resp BP Pulse Ox 35.9 C L 87 18 135/103 H 99 03/07/22 07:20 03/07/22 07:20 03/07/22 07:20 03/07/22 07:20 03/07/22 07:20 Lab Results Blood Type / Crossmatch: No Data to Display Complete Blood Count: White Blood Count 6.19 10^3/uL (4.4-10.8) 02/14/22 09:35 Red Blood Count 5.36 10^6/uL (3.93-5.22) H 02/14/22 09:35 Hemoglobin 12.4 g/dL (11.2-15.7) 02/14/22 09:35 Hematocrit 41.5 % (36.0-46.0) 02/14/22 09:35 Platelet Count 265 10^3/uL (130-400) 02/14/22 09:35 Complete Metabolic Panel: Sodium Level 142 mmol/L (136-145) 02/14/22 09:35 Potassium Level 4.2 mmol/L (3.5-5.1) 02/14/22 09:35 Chloride Level 105 mmol/L (98-107) 02/14/22 09:35 Carbon Dioxide Level 28.3 mmol/L (21.0-32.0) 02/14/22 09:35 Blood Urea Nitrogen 21 mg/dL (7-18) H 02/14/22 09:35 Creatinine 0.9 mg/dL (0.55-1.02) 02/14/22 09:35 Estimated GFR/1.73 m2 >= 60.00 (mL/min/1.73m2) 02/14/22 09:35 Calcium Level 9.1 mg/dL (8.5-10.1) 02/14/22 09:35 Albumin 3.9 g/dL (3.4-5.0) 02/14/22 09:35 Glucose Level 107 mg/dL (74-106) H 02/14/22 09:35 Liver Function Panel: Alanine Aminotransferase (ALT/SGPT) 27 U/L (14-59) 02/14/22 09:35 Aspartate Amino Transf (AST/SGOT) 16 U/L (15-37) 02/14/22 09:35 Coagulation Panel: No Data to Display Cardiac Panel: ZP-Wpu-D-Type Natriuretic Peptide 1624 pg/mL (<300) H 02/14/22 Arterial Blood Gas: No Data to Display Venous Blood Gas: No Data to Display Pancreas Panel: No Data to Display Thyroid Panel: No Data to Display Infectious Disease: No Data to Display Blood Cultures: No Data to Display Toxicology Panel: No Data to Display Imaging and Studies Imaging and Studies Study information below may be from another EMR and interpreted by another provider. Please see original notes in EMR for more complete details. EKG Summary: DATE/TIME OF SERVICE: 07/28/21 1440 HR:119 bpm ECG Measurements Heart Rate 119 AXIS MA [id number] P [id number] QRSd 83 QRS 16 QT 341 T61 QTc 479 Conclusion Atrial fibrillation...V-rate 91-169, irreg A-activity Borderline ST depression, diffuse leads...ST <-0.07mV, ant/lat/inf Stress Test Summary: 12/22/2010:Indeterminate study. Follow up diagnosed with atypical chest pain that has been long standing. Echocardiogram Summary: 02/24/2022: Conclusion Normal left ventricular wall thickness and chamber size. Estimated ejection fraction is 55%. Wall motion appears normal Normal right ventricular size. The right ventricle appears mildly hypocontractile Both atria are moderately dilated Aortic valve is sclerotic and trileaflet with trace regurgitation. There is no aortic stenosis Normal mitral valve with moderate regurgitation Normal tricuspid valve with moderate regurgitation. Estimated right ventricular systolic pressure is 29 mmHg Mildly dilated ascending aorta measuring 3.45 cm Anesthesia Assessment and Plan Anesthesia History Personal History: No History of Anesthesia Complications Family History: No Family History of Anesthesia Complications Exercise Tolerance Exercise Tolerance: Metabolic Equivalents<4 Cardiac & Pulmonary Exam Cardiac Exam: Normal S1/S2 Heart Sounds Pulmonary Exam: Clear Bilateral Breath Sounds Implantable Cardiac Device Does patient have a Pacemaker or an ICD?: No Airway Exam Known Difficult Airway: No Mallampati Class: 3 Mouth Opening: Normal (> 3cm) Thyromental Distance: Less than 3 cm Neck Range of Motion: Full ROM Neck Circumference: Thick Teeth Condition: Normal Dentition Airway Comments: Crowns in back x 2 ASA Classification ASA Score: ASA 3 Emergency Case?: No NPO Status NPO Status: NPO Clears >2 hours, Solids >8 hours Anesthesia Plan Resuscitation Status: Full Code Anesthesia Technique: MAC Anesthesia Airway Planned: Natural Airway Monitors Used: Standard Monitors
[2022-03-07 07:55] VITALS: BMI 42.5
[2022-03-07] MEDS: Tetracaine 0.5% 4 ML BTL OS (08:21)
[2022-03-07] MEDS: Lidocaine 2% Jelly 6 ML SYR (08:21)
[2022-03-07] MEDS: Duovisc Viscoelastic System EACH 1 EACH (08:32)
[2022-03-07] MEDS: Balanced Salt Soln.-PLUS 500 ML BAG (08:32)
[2022-03-07] MEDS: Povidone-Iodine Ophth 30 ML BTL (08:34)
--- NOTE | 2022-03-07 08:47 | W.PM.DSUDISC ---
Discharge Plan Disposition Patient Disposition: HOME Condition: Good Discharge Details Attending Provider: Blayne Garcia Primary Care Provider: Ciera Garcia Home Meds and New Rx's Prescriptions: No Action furosemide 40 MG tablet 30 mg PO DAILY Label Comments: 02/27/2019 Pt states taking only 20mg PRN for ankle swelling. PG metoprolol tartrate 100 MG tablet 100 mg PO BID warfarin 5 MG tablet 5 mg PO HS albuterol sulfate [Ventolin HFA] 90 mcg/actuation Hfa Aerosol Inhaler 2 puff INHALATION Q4H PRN epinephrine [EpiPen 2-Vipul] 0.3 mg/0.3 mL Auto-Injector 0.3 mg IM ONCE acetaminophen 500 mg Capsule 500 mg PO QID PRN Discharge Instructions Stand Alone Forms: Post-op Topical Cataract, Braden Hedrick (DSU) Discharge Orders Discharge Orders: Discharge Order (Routine); Ordered 03/07/22 Ordered By: Blayne Garcia DS: Diagnosis Discharge Diagnosis (1) Cortical cataract of left eye: Status: Resolved (2) Nuclear sclerotic cataract of left eye: Status: Resolved
--- NOTE | 2022-03-07 08:49 | ROE_ITS ---
Date of service: 03/07/22 Time of Service: 08:49 Operative Note Operative Note DATE OF PROCEDURE: 03/07/22 PRE-OP DIAGNOSIS: Nuclear/cortical cataract, left eye POST-OP DIAGNOSIS: same PROCEDURE: Cataract extraction using phacoemulsification with intraocular lens implant, left eye SURGEON: Blayne Garcia ANESTHESIA TYPE: Local By Surgeon and MAC Refer to Anesthesia Record PATHOLOGY: none sent COMPLICATIONS: None Patient was transported to: same day Patient's condition: stable Implants: [employer] / [employer] Tecnis [id number] Indications: Progressive decreased vision due to cataract, left eye Procedure Description: CATARACT SURGERY OPERATIVE REPORT PREOPERATIVE DIAGNOSIS: 1. Nuclear/cortical cataract, left eye POSTOPERATIVE DIAGNOSIS: Same OPERATION: 1. Cataract extraction using phacoemulsification with posterior chamber intraocular lens implant, left eye. IOL: IOL [employer]/Model: [employer] Todd / KENA Tecnis [id number] IOL Power: + 18.5 diopters IOL Serial Number: [id number] Optic Diameter: 6.0 mm Haptic/Overall Diameter: 13.0 mm PHACO INFO: [employer]urion Vision System with OZil and Active [employer]uidics Cumulative Dispersed Energy (CDE): 8.67 seconds SURGEON: Blayne Garcia MD, TAMI ANESTHESIA: Monitored A [facility] (MAC), with local sub-tenon's anesthetic infiltration COMPLICATIONS: None SPECIMENS: None INDICATIONS FOR PROCEDURE: The patient is an 82-year-old lady with history of diminished visual acuity in both eyes secondary to the development of bilateral cataracts. She has previously undergone cataract surgery in her right eye and is doing well postoperatively. She now presents for cataract surgery in her left eye. PROCEDURE: The correct surgical eye was identified and marked as the left eye and the pupil was dilated in the preoperative area using mydriatics and cycloplegics. The dilated pupil size was 7.0 mm. She elected to proceed without oral sedation. The patient was brought to the operating room where cardiopulmonary monitoring was instituted and surgical time-out was performed, confirming the correct operative eye and IOL power. Topical anesthesia was administered and ophthalmic povidone-iodine 5% was instilled into the conjunctival fornices. Lidocaine gel was applied to the cornea and the obdulia-ocular area was prepped with Betadine 10% solution and draped in the usual sterile fashion for intraocular surgery, including an aperture drape. A Tegaderm transparent film dressing was cut in half and used to cover the lashes and lid margins. Care was taken to sequester the lashes and lid margins under the Tegaderm dressing. A lid speculum was placed between the lids of the operative eye and the Mike [employer] Rev[employer] operating microscope was maneuvered into position. Jose scissors were then used to make a conjunctival buttonhole approximately 6mm posterior to the limbus in the inferonasal quadrant. Blunt dissection was carried out to expose bare sclera, and a blunt-tipped sub-tenon?s anesthesia cannula was introduced and passed posteriorly along the globe where non- preserved plain lidocaine was injected into posterior sub-Tenon?s space. A sideport knife was used to make a paracentesis port super iorly/superiortemporally. Intraocular phenylephrine/lidocaine was injected int the anterior chamber.. The anterior chamber was filled with viscoelastic. A 2.6mm keratome knife was used to construct a 2-plane near-clear corneal tunnel extending 2.0mm into clear cornea temporally. A flap was raised on the anterior capsule and capsulorhexis forceps were used to complete a continuous curvilinear capsulorhexis of 5.0 mm. Balanced salt solution was then used to perform cortical cleaving hydrodissection and nuclear hydrodelineation until the lens could be freely rotated within the capsular bag. The lens nucleus was then disassembled and removed within the capsular bag and iris plane using phacoemulsification. Residual cortical material was removed using the 45-degree angled silicone I/A tip with 0.3mm port. The posterior capsule was carefully polished to remove as much residual lens epithelial cells as safely possible. The capsular bag was then inflated and the anterior chamber deepened with viscoelastic. The lens implant described above was inserted into the capsular bag using the KENA [place] Injector. A Kuglen hook was used to dial the IOL into position. Residual viscoelastic was then removed first from posterior to the IOL, then from the anterior chamber using the I/A handpiece. The lens implant was noted to center nicely within the capsular bag. The incisions were stromally hydrated, and the anterior chamber was reformed using BSS. Then 0.5cc of moxifloxacin 1.0mg/ml were injected into the capsular bag and anterior chamber. The incisions were checked with a Weck spear and found to be secure. Several drops of ophthalmic povidone-iodine 5% were then applied to the eye followed by two drops of Imprimis combination prednisolone/moxifloxacin/nepafenac solution. The drapes were removed and a clear plastic protective eye shield was placed over the eye. The patient was then returned to Same Day Surgery in stable condition.
[2022-03-07 08:50] VITALS: BP 127/81; PULSE 86; RESP 16; TEMP 36.4; O2SAT 98
--- NOTE | 2022-03-07 09:01 | W.ANESPOSTOP ---
Postoperative Evaluation Date, Time and Location Date Performed: 03/07/22 Time Performed: 08:50 Patient Location: Day Surgery Unit Vital Signs Most Recent Imported Vital Signs: Most Recent Vital Signs Temp Pulse Resp BP Pulse Ox 36.4 C L 86 16 127/81 98 03/07/22 08:50 03/07/22 08:50 03/07/22 08:50 03/07/22 08:50 03/07/22 08:50 Pain Score Most Recent Pain Score: Most Recent Pain Score Pain Level 0 03/07/22 08:50 Assessment Mental Status: Awake (Alert & Oriented to Patient Baseline) Airway and Respiratory Function: Patent airway with normal (patient baseline) respiratory exam Cardiovascular Function: Hemodynamically Stable Hydration Status: Adequately Hydrated Nausea & Vomiting: No Nausea or Vomiting Pain: Pt. Denies Any Pain Peripheral Nerve Block: Patient did not receive a nerve block
== END 2022-03-07 09:09 | disposition home or self-care (01) ==
PROVIDERS: PCP Family Medicine; Visit Provider Ophthalmology
PROC: (CPT 66984; principal; 2022-03-07 08:30)
DX: H25.12 Age-related nuclear cataract, left eye (principal); I48.0 Paroxysmal atrial fibrillation; Z79.01 Long term (current) use of anticoagulants; I10 Essential (primary) hypertension
CPT/HCPCS: 66984; V2632

== ENCOUNTER 2022-03-22 03:08 | Outpatient (CLI) | payer MEDICARE, SELFPAY ==
--- NOTE | 2022-04-14 10:22 | W.CARDEVENT ---
Date of service: 04/14/22 Time of Service: 10:22 Cardiac Event Recorder Referring Provider:: Aman Gomes Indications:: Atrial fibrillation Cardiac Event Note: This is a 14-day cardiac event monitor, ordered for atrial fibrillation The patient was in atrial fibrillation throughout the recording. Average heart rate was 88, minimum 57, maximum 174 There were rare ventricular ectopic beats Patient symptoms were reported which did not correspond to any dysrhythmia other than the baseline there was no high-grade AV block, no pauses greater than 3 seconds
== END 2022-03-22 03:09 | disposition home or self-care (01) ==
LOC: RT 03:08
PROVIDERS: PCP Family Medicine; Visit Provider Internal Medicine Cardiovascular Disease
DX: I48.0 Paroxysmal atrial fibrillation (principal)
CPT/HCPCS: 93246

== ENCOUNTER 2022-04-14 10:22 | Outpatient (CLI) | payer MEDICARE, SELFPAY | END 2022-04-14 10:23 | LOC: CARDO 05-23 09:07 | PROVIDERS: PCP Family Medicine; Referring Provider Family Medicine; Visit Provider Internal Medicine Cardiovascular Disease | DX: I48.0 Paroxysmal atrial fibrillation (principal) | CPT/HCPCS: 93248 ==

== ENCOUNTER → 2022-07-29 10:13 | Outpatient (BNVA) | payer MEDICARE, SELFPAY | PROVIDERS: PCP Family Medicine; Referring Provider Family Medicine; Visit Provider Internal Medicine Cardiovascular Disease | DX: I48.21 Permanent atrial fibrillation (principal); R60.0 Localized edema; Z79.01 Long term (current) use of anticoagulants; G47.33 Obstructive sleep apnea (adult) (pediatric); Z99.89 Dependence on other enabling machines and devices | CPT/HCPCS: 99214 ==

== ENCOUNTER 2022-08-24 14:11 | Outpatient (REF) | payer MEDICARE, SELFPAY ==
[2022-08-24 14:11] LABS: HCT 45.2 % (36.0-46.0); HGB 13.9 g/dL (11.2-15.7); MCH 24.3 pg (27.0-33.0); MCHC 30.8 % (32.0-36.0); MCV 79 fL (80-95); Platelet Count 243 10^3/uL (130-400); RBC 5.72 10^6/uL (3.93-5.22); RDW 17.4 % (11.7-14.6); RDW-SD 49.1 fL
[2022-08-24 14:44] LABS: ALT 21 U/L (14-59); AST 22 U/L (15-37); Albumin 3.9 g/dL (3.4-5.0); Alkaline Phosphatase 129 U/L (46-116); Anion Gap 8.5 mmol/L (3-11); BUN 19 mg/dL (7-18); Bilirubin, Total 1.2 mg/dL (0.2-1.0); CO2 31.5 mmol/L (21.0-32.0); Calcium 9.7 mg/dL (8.5-10.1); Calculated LDL 142 mg/dL (<100); Chloride 103 mmol/L (98-107); Cholesterol 220 mg/dL (<200); Glucose 108 mg/dL (74-106); HDL Cholesterol 48 mg/dL (40-60); Potassium 4.6 mmol/L (3.5-5.1); Sodium 143 mmol/L (136-145); Total Protein 7.3 g/dL (6.4-8.2); Triglyceride 151 mg/dL (<150)
== END 2022-08-24 14:12 | disposition home or self-care (01) ==
LOC: NCHCN 14:11
PROVIDERS: PCP Family Medicine; Visit Provider Family Medicine
DX: I10 Essential (primary) hypertension (principal); D50.9 Iron deficiency anemia, unspecified; E78.89 Other lipoprotein metabolism disorders; I50.9 Heart failure, unspecified; R60.0 Localized edema; E66.8 Other obesity; E55.9 Vitamin D deficiency, unspecified
CPT/HCPCS: 80053; 80061; 82306; 85027

== ENCOUNTER → 2022-10-28 11:09 | Outpatient (BNVA) | payer MEDICARE, SELFPAY | PROVIDERS: PCP Family Medicine; Referring Provider Family Medicine; Visit Provider Internal Medicine Cardiovascular Disease | DX: R60.0 Localized edema; I48.0 Paroxysmal atrial fibrillation | CPT/HCPCS: 99214; 99213 ==

== ENCOUNTER 2023-01-18 12:11 | Outpatient (REF) | payer MEDICARE, SELFPAY ==
[2023-01-18 14:34] LABS: ALT 18 U/L (14-59); AST 17 U/L (15-37); Albumin 3.7 g/dL (3.4-5.0); Alkaline Phosphatase 119 U/L (46-116); BUN 24 mg/dL (7-18); Bilirubin, Total 0.7 mg/dL (0.2-1.0); Calcium 9.7 mg/dL (8.5-10.1); Chloride 104 mmol/L (98-107); Glucose 117 mg/dL (74-106); Potassium 4.2 mmol/L (3.5-5.1); Sodium 144 mmol/L (136-145); Total Protein 7.1 g/dL (6.4-8.2)
[2023-01-18 14:54] LABS: Vitamin D 25 Total 25.6 ng/mL (30-100)
== END 2023-01-18 12:12 | disposition home or self-care (01) ==
LOC: NCHCN 12:11
PROVIDERS: PCP Family Medicine; Visit Provider Family Medicine
DX: I10 Essential (primary) hypertension (principal); I50.9 Heart failure, unspecified; E55.9 Vitamin D deficiency, unspecified
CPT/HCPCS: 80053; 82306

== ENCOUNTER 2023-02-08 02:35 | Outpatient (CLI) | payer MEDICARE, SELFPAY ==
--- NOTE | 2023-02-08 08:35 | DI.MAMMO_ITS ---
Exam(s) MAMMO SCREENING EXAM: MAMMO SCREENING CLINICAL HISTORY: SCREENING, Z12.31 TECHNIQUE: Mammograms were interpreted according to the usual protocol including computer analysis w [employer] CAD system, tomosynthesis and C-view imaging. COMPARISON: 2012 through 2021 FINDINGS: The breasts are composed of scattered fibroglandular densities, Breast Density category B. No suspicious masses or suspicious microcalcifications are seen. Scattered benign calcifications are again noted bilaterally. There is stable bilateral nodules. No skin thickening or abnormal axillary lymph nodes are seen. There has been no significant change from prior exams. IMPRESSION: BI-RADS Category 2 - Benign Findings Yearly screening mammography is recommended. Breast Density - Category B, scattered fibroglandular densities. A negative radiographic report should not delay biopsy if a dominant or clinically suspicious mass is present. Up to ten percent of cancers are not identified on mammography. A negative report may reinforce clinical impression. Adenosis and dense breasts may obscure an underlying neoplasm. False positive reports average 6 to 10%. Patient will receive a letter notifying them of these results.
== END 2023-02-08 02:55 ==
PROVIDERS: PCP Family Medicine; Visit Provider Family Medicine
DX: Z12.31 Encounter for screening mammogram for malignant neoplasm of breast (principal)
CPT/HCPCS: 77063; 77067

== ENCOUNTER → 2023-04-18 03:06 | Outpatient (CLI) | payer MEDICARE, SELFPAY ==
--- NOTE | 2023-04-18 07:15 | DI.US_ITS ---
APPROVED REPORT EXAM: Comprehensive 2D, Doppler, and color-flow Echocardiogram Patient Location: Out-Patient Chief Of Police: Mary Max RDCS (AE) Indications: Check LV function, Paroxysmal atrial fibrillation Other Information Study Quality: Adequate Conclusion Normal left ventricular wall thickness and chamber size. Ejection fraction is 50 to 55%. There are no segmental wall motion abnormalities Mildly dilated right ventricle with normal systolic function Both atria are moderately dilated Aortic valve is trileaflet and sclerotic with trace to mild regurgitation Normal mitral valve, moderate central regurgitation Normal tricuspid valve, moderate regurgitation. Estimated right ventricular systolic pressure is 37 mmHg Mildly dilated ascending aorta Wall motion Left Ventricle The left ventricle is normal size. The left ventricular systolic function is normal. The left ventric ular ejection fraction is within the normal range. There is normal left ventricular wall thickness. T here is normal LV segmental wall motion. There is no ventricular septal defect visualized. LVEF is 53 %. Right Ventricle Right ventricle is mildly dilated. Right ventricular systolic function is grossly normal. Atria Left atrium is moderately dilated. Right atrium is moderately dilated. The interatrial septum is int act with no evidence for an atrial septal defect. Aortic Valve The Aortic valve is sclerotic. Aortic valve is trileaflet. There is no aortic valvular stenosis. Trac e to mild aortic regurgitation. Mitral Valve The mitral valve is normal in structure. No evidence of mitral valve stenosis. Moderate mitral regurg itation. Tricuspid Valve The tricuspid valve is normal in structure. There is no tricuspid valve stenosis. Moderate tricuspid regurgitation. The RVSP is 37.5 mmHg. Pulmonic Valve The pulmonary valve is normal in structure. There is no pulmonic valvular stenosis. Trace to mild pu lmonic regurgitation. Great Vessels The aortic root is normal in size. The ascending aorta is mildly dilated. Aortic arch is not well vis ualized. IVC is normal in size and collapses >50% with inspiration. Pericardium There is no pericardial effusion. 2D Dimensions IVSD d PLAX 0.84 cm F: 0.6-1.0 LVPW d PLAX 0.77 cm F: 0.6 - 1.0 LVID d PLAX 4.60 cm F: 3.8 - 5.2 LVDs 3.30 cm F: 2.2 - 3.5 Ao Root d 2.54 cm F: 2.7 - 3.3 Ao Asc Diam d 3.34 cm F: 2.3 - 3.1 LV EF Brianichholz 54.2 % FS 27.95 % M-Mode TAPSE 2.00 cm (M/F) >1.7 LV Diastology MV E' medial 0.110 (>0.07 m/s) E/A Ratio 0.5 MV E' lateral 0.160 (>0.1 m/s) MV E Vmax 0.44 (0.4-1.3 m/s) MV A Vmax 0.90 (0.4-1.3 m/s) Aortic Valve LVOT Vmax 0.85 m/s AR Vmax 4.10 m/s LVOT Peak Grad 2.9 mmHg AR DT 2513 msec LVOT Mean Grad 1.8 mmHg AR PHT 729 msec LVOT Diam s 1.90 cm AV Regurg Peak Gr. 67.35 mmHg AoV Vmax 1.48 m/s Velocity Ratio 0.57 AoV Peak Grad 67.4 mmHg LVOT SV 48.16 mL AoV Mean Grad 4.9 mmHg AoV Area VTI 1.52 cm2 Mitral Valve MV DT 130 (160-240 msec) MR Vmax 4.51 m/s MR VTI 1.694 m MR Peak Grad 81.3 mmHg MR Mean Grad 61.8 mmHg Pulmonary Valve PV Mean Grad 1.7 mmHg RVOT Peak Gr. 1.47 mmHg RVOT Mean Gr. 0.75 mmHg RVOT VTI 0.111 m RVOT Vmax 0.61 m/s Tricuspid Valve TR Peak Grad 34.5 mmHg TR Vmax 2.94 m/s RA Pressure 3.00 mmHg RVSP (TR) 37.5 mmHg
== END ==
PROVIDERS: PCP Family Medicine; Visit Provider Internal Medicine Cardiovascular Disease
DX: I48.0 Paroxysmal atrial fibrillation (principal)
CPT/HCPCS: 93306

== ENCOUNTER → 2023-05-01 09:34 | Outpatient (BNVA) | payer MEDICARE, SELFPAY | PROVIDERS: PCP Family Medicine; Referring Provider Family Medicine; Visit Provider Internal Medicine Cardiovascular Disease | DX: I48.0 Paroxysmal atrial fibrillation (principal); R60.0 Localized edema | CPT/HCPCS: 99214; 99213 ==

== ENCOUNTER 2023-05-02 12:40 | Outpatient (REF) | payer MEDICARE, SELFPAY ==
[2023-05-03 10:58] LABS: Campylobacter PCR Negative (Negative); Salmonella PCR Negative (Negative); Shiga Toxin PCR Negative (Negative); Shigella/Enteroinvasive Ecoli Negative (Negative)
== END 2023-05-02 12:41 | disposition home or self-care (01) ==
LOC: NCHCN 12:40
PROVIDERS: PCP Family Medicine; Visit Provider Family Medicine
DX: R19.7 Diarrhea, unspecified
CPT/HCPCS: 87329; 87505; 83630; 87177

== ENCOUNTER → 2023-05-03 09:16 | Outpatient (BNVA) | payer MEDICARE, SELFPAY | PROVIDERS: PCP Family Medicine; Referring Provider Family Medicine; Visit Provider Surgery | DX: R19.7 Diarrhea, unspecified (principal) | CPT/HCPCS: 99213 ==

== ENCOUNTER → 2023-05-31 09:29 | Outpatient (BNVA) | payer MEDICARE, SELFPAY | PROVIDERS: PCP Family Medicine; Referring Provider Family Medicine; Visit Provider Surgery | DX: R19.7 Diarrhea, unspecified (principal) | CPT/HCPCS: 99212 ==

== ENCOUNTER → 2023-09-15 00:50 | Outpatient (CLI) | payer MEDICARE, SELFPAY ==
--- NOTE | 2023-09-15 07:00 | DI.US_ITS ---
Exam(s) US SOFT TISS BUTTOCK/PERINEUM EXAM: US SOFT TISS BUTTOCK/PERINEUM CLINICAL HISTORY: R bartholin gland cyst postmenopausal female,n75.0. TECHNIQUE: Ultrasound was performed using standard protocol. Transvaginal imaging performed COMPARISON: No exams were available for comparison FINDINGS: Sonographic assessment utilizing grayscale and color Doppler imaging was performed and targeted to th e area of clinical concern. Transabdominal imaging was limited. No abnormality could be identified. With the transvaginal transducer inserted slightly into the vaginal opening, there is a 3.7 x 3.3 x 5 centimeter circumscribed hyperechoic lesion with a hypoechoic, cystic area measuring 2.3 cm which i s toward the right in the vaginal canal. Findings may represent a Bartholin's gland cyst with protei naceous or hemorrhagic debris. IMPRESSION: 5 centimeter maximal dimension hyperechoic circumscribed collection in the proximal right vagina may represent a Bartholin gland cyst with proteinaceous or hemorrhagic material. DATA REPOSITORY:
== END ==
PROVIDERS: PCP Family Medicine; Visit Provider Obstetrics & Gynecology Gynecology
DX: N75.0 Cyst of Bartholin's gland (principal)
CPT/HCPCS: 76857

== ENCOUNTER 2023-10-23 14:25 | Outpatient (REF) | payer MEDICARE, SELFPAY ==
[2023-10-23 15:37] LABS: HCT 41.5 % (36.0-46.0); HGB 12.9 g/dL (11.2-15.7); MCH 24.8 pg (27.0-33.0); MCHC 31.1 % (32.0-36.0); MCV 80 fL (80-95); Platelet Count 266 10^3/uL (130-400); RBC 5.21 10^6/uL (3.93-5.22); RDW-SD 46.5 fL; WBC 5.65 10^3/uL (4.4-10.8)
[2023-10-23 16:07] LABS: ALT 21 U/L (14-59); AST 17 U/L (15-37); Albumin 3.7 g/dL (3.4-5.0); Alkaline Phosphatase 117 U/L (46-116); BUN 18 mg/dL (7-18); CREATININE 0.9 mg/dL (0.55-1.02); Calcium 9.8 mg/dL (8.5-10.1); Calculated LDL 144 mg/dL (<100); Chloride 107 mmol/L (98-107); Cholesterol 217 mg/dL (<200); Estimated GFR 63.83 (mL/min/1.73m2); Glucose 113 mg/dL (74-106); HDL Cholesterol 47 mg/dL (40-60); Potassium 4.5 mmol/L (3.5-5.1); Sodium 145 mmol/L (136-145); Total Protein 6.9 g/dL (6.4-8.2); Triglyceride 134 mg/dL (<150)
[2023-10-23 17:21] LABS: Vitamin D 25 Total 31.6 ng/mL (30-100)
== END 2023-10-23 14:26 | disposition home or self-care (01) ==
LOC: NCHCN 14:25
PROVIDERS: PCP Family Medicine; Visit Provider Family Medicine
DX: E55.9 Vitamin D deficiency, unspecified (principal); E78.89 Other lipoprotein metabolism disorders; I48.91 Unspecified atrial fibrillation
CPT/HCPCS: 80053; 80061; 82306; 85027

== ENCOUNTER 2023-11-16 13:52 | Emergency (ER) | payer MEDICARE, SELFPAY ==
[2023-11-16 13:55] VITALS: BP 174/149; PULSE 101; RESP 20; TEMP 36.3; O2SAT 97
[2023-11-16 14:26] LABS: Abs Immature Grans 0.02 10^3/uL (0.0-0.06); Absolute Basophil Count 0.06 10^3/uL (0.0-0.2); Absolute Eosinophil Count 0.18 10^3/uL (0.0-0.7); Absolute Lymphocyte Count 2.84 10^3/uL (1.2-3.4); Absolute Neutrophil Count 4.82 10^3/uL (1.2-6.7); Basophils % 0.7; HCT 41.7 % (36.0-46.0); HGB 12.9 g/dL (11.2-15.7); Immature Grans % 0.2; Lymphocytes % 32.2; MCH 24.4 pg (27.0-33.0); MCHC 30.9 % (32.0-36.0); MCV 79 fL (80-95); MPV 9.2 fL (8.0-11.0); Monocytes % 10.2; Neutrophils % 54.7; Platelet Count 270 10^3/uL (130-400); RBC 5.29 10^6/uL (3.93-5.22); RDW 16.7 % (11.7-14.6); RDW-SD 47.4 fL; WBC 8.82 10^3/uL (4.4-10.8)
[2023-11-16 14:34] LABS: Anion Gap 6.2 mmol/L (3-11); BUN 19 mg/dL (7-18); CO2 31.8 mmol/L (21.0-32.0); Calcium 10.1 mg/dL (8.5-10.1); Chloride 105 mmol/L (98-107); Estimated GFR 56.25 (mL/min/1.73m2); Glucose 102 mg/dL (74-106); Potassium 4.2 mmol/L (3.5-5.1); Sodium 143 mmol/L (136-145)
[2023-11-16] MEDS: fentaNYL 100 MCG/2 ML VIAL 50 MCG IVP (14:35)
[2023-11-16 14:44] LABS: Prothrombin Time 37.6 sec (9.1-11.1)
[2023-11-16 14:46] LABS: INR 4.2 (0.9-1.1)
--- NOTE | 2023-11-16 14:49 | W.ED.GENAD ---
Discharge Plan Disposition Patient Disposition: Home Discharge Details Clinical Impression: H/O surgical removal of Bartholin’s gland cyst, Vaginal bleeding, Supratherapeutic INR Primary Care Provider: Ciera Garcia ED Provider: Gerardo Hoffman Home Meds and New Rx's Prescriptions: Continued cholecalciferol (vitamin D3) 125 mcg (5,000 unit) capsule 125 mcg PO DAILY multivitamin Tablet 1 tab PO DAILY psyllium husk 3 gram/5.4 gram powder 1 tbsp PO DAILY Qty: 426 3RF Rx Instructions: mix into at least 8 oz of water or juice before administering. Allow 24 to 48 hours for effect. If still having diarrhea, increase the dose to once in the morning, and once in the afternoon. Again, give another 24 to 48 hours then increase the dose to 3 times a day if needed. furosemide 40 mg tablet 20 mg PO DAILY metoprolol tartrate 100 MG tablet 100 mg PO BID warfarin 5 MG tablet 5 mg PO HS Rx Instructions: 2.5mg Tues/Thur 5mg Mon/Mon/Mon/Sat/Sun albuterol sulfate [Ventolin HFA] 90 mcg/actuation Hfa Aerosol Inhaler 2 puff INHALATION Q4H PRN epinephrine [EpiPen 2-Vipul] 0.3 mg/0.3 mL Auto-Injector 0.3 mg IM ONCE acetaminophen 500 mg Capsule 500 mg PO QID PRN Discharge Instructions Additional Instructions: You are seen in the emergency department for your vaginal bleeding. Your melo catheter was removed by gynecology. Please return to the emergency department if you begin bleeding more than 1 pad per hour. Please return to the gynecology clinic as arranged tomorrow morning at 9:30 AM for follow-up. As we discussed, your INR was elevated at 4.2. Please check your INR level at home this evening to calibrate your monitor at home. Please hold your warfarin at home regardless of what your home monitor says tonight. HPI General Date/Time Provider Initiated Documentation: 11/16/23 14:00. HPI Narrative: MDM This is a mildly tachycardic but not hypotensive and afebrile 83-year-old female with recent with catheter and vaginal bleeding. With patient's nurse Fernanda completed an external exam. Patient was having mild bleeding from the Melo catheter site for which I paged OB. 2:48 PM I spoke with Dr. Oh from gynecology who will come down to assess the patient. Basic metabolic panel showing no DENISE. Mildly elevated BUN. No acute electrolyte abnormalities. Supratherapeutic INR at 4.2. CBC with no anemia or thrombocytopenia nor leukocytosis. 4 PM I was planning on obtaining a CT pelvis to assess for any significant pelvic mass however Dr. Oh did not feel that this was necessary at this juncture. Dr. Oh and I both reassessed the patient after she had had her Melo catheter removed by Dr. Oh. There was no ongoing bleeding. Patient and I discussed holding her warfarin overnight and checking her INR this afternoon and tomorrow morning on her home INR units. We also discussed returning her INR unit to her medical supplier to have it recalibrated. I advised ED return for any bleeding more than 1 pad per hour. Patient will follow-up tomorrow morning with Dr. Oh. 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 Patient reports that she has been bleeding through more than 1 pad per hour since 7:30 AM this morning. She says that her INR this morning was 3.4 at home. She has not had any chest pain. She did not syncopized. She denies dysuria and frequency. No abdominal pain. Exam General: Well-appearing in no acute distress speaking in complete sentences. Head: Normocephalic, atraumatic. Eye: Extraocular eye movements intact. No conjunctival injection. No scleral icterus. Ear, nose, mouth, throat: Grossly normal inspection. Normal voice, handling secretions normally. Neck: Trachea midline. Cardiovascular: Well-perfused distal extremities. Respiratory: Nonlabored respiration. Gastrointestinal: Nondistended abdomen. : With patient's nurse Del and family I completed external exam. On the right labia patient had Wood's catheter in place with minor but persistent venous oozing. Musculoskeletal: Moving all 4 extremities spontaneously. Skin: Normal for age and race, grossly normal temperature and turgor. No acute rash. Neurologic: Alert and appropriate, no apparent acute deficits. Psychiatric: Mood and manner are appropriate. Grooming and personal hygiene are appropriate. Related Data Home Medications Medication Instructions Recorded Confirmed metoprolol tartrate 100 mg tablet 100 mg PO BID 05/08/16 11/16/23 warfarin 5 mg tablet 5 mg PO HS 05/08/16 11/16/23 acetaminophen 500 mg capsule 500 mg PO QID PRN 06/16/21 11/16/23 albuterol sulfate 90 mcg/actuation 2 puff inhalation Q4H PRN 10/08/21 11/16/23 aerosol inhaler (Ventolin HFA) epinephrine 0.3 mg/0.3 mL 0.3 mg IM ONCE 10/08/21 11/16/23 injection, auto-injector (EpiPen 2-Vipul) cholecalciferol (vitamin D3) 125 125 mcg PO DAILY 05/01/23 11/16/23 mcg (5,000 unit) capsule multivitamin 1 tab PO DAILY 05/03/23 11/16/23 psyllium husk 3 gram/5.4 gram oral 1 tbsp PO DAILY diarrhea #426 grams 05/03/23 11/16/23 powder furosemide 40 mg tablet 20 mg PO DAILY 09/12/23 11/16/23 Previous Rx's Medication Instructions Recorded psyllium husk 3 gram/5.4 gram oral 1 tbsp PO DAILY diarrhea #426 grams 05/03/23 powder Allergies Allergy/AdvReac Type Severity Reaction Status Date / Time neomycin Allergy Mild swelling Verified 11/16/23 14:00 and edema lisinopril AdvReac Intermediate Nausea Verified 11/16/23 14:00 bees stings Allergy Severe Anaphylaxsi Uncoded 11/16/23 14:00 s General 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 CARINA: 3 Course Vital Signs Vital signs: Vital Signs Temperature 36.3 C L 11/16/23 13:55 Pulse 101 H 11/16/23 13:55 Respiratory Rate 20 11/16/23 13:55 Blood Pressure 174/149 H 11/16/23 13:55 Pulse Oximetry 97 11/16/23 13:55 Temperature 36.3 C L 11/16/23 13:55 Temperature Source Skin 11/16/23 13:55 Pulse 101 H 11/16/23 13:55 Respiratory Rate 20 11/16/23 13:55 Blood Pressure 174/149 H 11/16/23 13:55 Blood Pressure Position Sitting 11/16/23 13:55 Pulse Oximetry 97 11/16/23 13:55 Oxygen Delivery Method Room Air 11/16/23 13:55 Oxygen Flow Rate 0 11/16/23 13:55 Pain Level 6 11/16/23 13:55 Lab/Test Results Lab/Test Results: Laboratory Tests Range/Units 11/16/23 14:15 WBC (4.4-10.8) 10^3/uL 8.82 RBC (3.93-5.22) 10^6/uL 5.29 H Hgb (11.2-15.7) g/dL 12.9 Hct (36.0-46.0) % 41.7 MCV (80-95) fL 79 L MCH (27.0-33.0) pg 24.4 L MCHC (32.0-36.0) % 30.9 L RDW (11.7-14.6) % 16.7 H Plt Count (130-400) 10^3/uL 270 MPV (8.0-11.0) fL 9.2 Immature Gran % 0.2 Neutrophils % 54.7 Lymphocytes % 32.2 Monocytes % 10.2 Eosinophils % 2.0 Basophils % 0.7 Nucleated RBC % (0.0-0.3) % 0.0 Absolute Neutrophils (1.2-6.7) 10^3/uL 4.82 Absolute Lymphocytes (1.2-3.4) 10^3/uL 2.84 Absolute Monocytes (0.1-0.8) 10^3/uL 0.90 H Absolute Eosinophils (0.0-0.7) 10^3/uL 0.18 Absolute Basophils (0.0-0.2) 10^3/uL 0.06 PT (9.1-11.1) sec 37.6 H INR (0.9-1.1) 4.2 H* Sodium (136-145) mmol/L 143 Potassium (3.5-5.1) mmol/L 4.2 Chloride (98-107) mmol/L 105 Carbon Dioxide (21.0-32.0) mmol/L 31.8 Anion Gap (3-11) mmol/L 6.2 BUN (7-18) mg/dL 19 H Creatinine (0.55-1.02) mg/dL 1.0 Est GFR (CKD-EPI 2020) (mL/min/1.73m2) 56.25 Glucose (74-106) mg/dL 102 Calcium (8.5-10.1) mg/dL 10.1 Medical Decision Making Quality:SDOH Health Related Social Needs: No Data to Display PFSH All Active Problems (Updated 11/16/23 @ 14:57 by Gerardo Hoffman MD) Supratherapeutic INR (Acute) Vaginal bleeding (Acute) H/O surgical removal of Bartholin’s gland cyst (Acute) 11/15/2023. [facility] Department of gynecologic oncology incision and drainage of a vulvar hematoma. Placement of Word catheter. 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 HTN (hypertension) Hx of cataract Hx of ectopic Ruptured Hx of hematuria Incontinence Obesity BREEZY on CPAP Surgical History History of appendectomy History of right oophorectomy Hx of breast biopsy left Hx of colonoscopy 06/2021 complete colonoscopy w/ Dr. Jeannie Anguiano Pt states virtual colonoscopy 2005 Hx of hysterectomy Hx of tooth extraction Family History Mother Cancer Social History (Updated 10/03/23 @ 21:31 by Laurie Oh MD) Smoking/Tobacco Use Status: Never Smoking risk assessment performed?: Yes Alcohol Intake: current Alcohol Intake frequency: holidays/special occasions only Alcohol type: hard liquor Drug use: Never Substance use type: does not use Household members: spouse and other Details: H-Christiano. 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 Sexually active: No Do you feel safe at home: Yes Do you feel safe in your relationship?: Yes Additional Social history: [birth year]: Christiano. 1963: Shi History History 3 Para Hx # Term Pregnancies 2 Multiple births Hx # Pregnancies Ectopic pregnancies 1 AB induced Hx Number of Living Children 2 AB spontaneous
--- NOTE | 2023-11-16 16:16 | GCONE_ITS ---
Date of service: 11/16/23 Time of Service: 16:16 Assessment and Plan Assessment and plan (1) Supratherapeutic INR: Status: Acute Assessment and plan: Patient will have a repeat INR obtained tomorrow at the time of her [facility] office visit. (2) H/O surgical removal of Bartholin’s gland cyst: Status: Acute Assessment and plan: Bartholin skin incision site appears hemostatic. Gauze will be removed by myself in the office tomorrow morning. Patient will follow-up with the gynecologic oncology team at [facility] for MRI of the pelvis. History of Present Illness History of Present Illness Chief Complaint: Bleeding from Bartholin's gland incision Narrative: 83yo postmenopausal female who underwent incision of a right sided Bartholin's gland cyst at [facility] Department of our gynecologic oncology on 11/15/2023. A Sweet catheter was placed into the cavity and sutured to the skin. Patient is on chronic anticoagulation and developed bleeding from the incision site this morning and was evaluated in the [facility] emergency department. Consults Consult date: 11/16/23 Requesting physician: Gerardo Hoffman Review of Systems All systems reviewed & are unremarkable except as noted in HPI and below PFSH All Active Problems (Updated 11/16/23 @ 14:57 by Gerardo Hoffman MD) Supratherapeutic INR (Acute) Vaginal bleeding (Acute) H/O surgical removal of Bartholin’s gland cyst (Acute) 11/15/2023. [facility] Department of gynecologic oncology incision and drainage of a vulvar hematoma. Placement of Word catheter. Obesity (Chronic) Bartholin gland cyst (Acute) Diarrhea (Acute) Encounter for screening colonoscopy (Acute) PAF (paroxysmal atrial fibrillation) (Acute) F/U with PCP Ciera Garcia Essential hypertension (Acute) Hypercholesterolemia (Acute) Degenerative joint disease of left hip (Acute) Left knee DJD (Acute) Trochanteric bursitis, left hip (Acute) Distal IT band insertion injection: 04/08/2019 CHF (congestive heart failure) (Chronic) Medical History Anemia Atrial fibrillation Bilateral leg edema Bunion Chronic left hip pain Chronic pain of left knee COVID 2/4/22 Dermatitis FH: TIFFANY-BSO (total abdominal hysterectomy and bilateral salpingo-oophorectomy) Hip joint pain History of cardioversion Pt states multiple attemts to cardiovert, successful s/p sleep study w/3mo trial on CPAP. HTN (hypertension) Hx of cataract Hx of ectopic Ruptured Hx of hematuria Incontinence Obesity BREEZY on CPAP Surgical History History of appendectomy History of right oophorectomy Hx of breast biopsy left Hx of colonoscopy 06/2021 complete colonoscopy w/ Dr. Jeannie Anguiano Pt states virtual colonoscopy 2005 Hx of hysterectomy Hx of tooth extraction Family History Mother Cancer Social History (Updated 10/03/23 @ 21:31 by Laurie Oh MD) Smoking/Tobacco Use Status: Never Smoking risk assessment performed?: Yes Alcohol Intake: current Alcohol Intake frequency: holidays/special occasions only Alcohol type: hard liquor Drug use: Never Substance use type: does not use Household members: spouse and other Details: H-Christiano. 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 Sexually active: No Do you feel safe at home: Yes Do you feel safe in your relationship?: Yes Additional Social history: 1961: Christiano. 1964: Shi History History 2 3 Para Hx # Term Pregnancies 2 Multiple births Hx # Pregnancies Ectopic pregnancies 1 AB induced Hx Number of Living Children 2 AB spontaneous Exam Narrative Exam Narrative: Patient on the [facility]. No acute distress. Const General: no acute distress Nutritional Appearance: obese Orientation: alert, awake and oriented x3 Other: The Sweet catheter was inflated and in place. I deflated the catheter and removed it without difficulty. The sutures holding in in place were trimmed. The site was packed with quarter inch iodoform gauze approximately 2 inches in length. A small tag was left on the outside of the skin. The site was observed after 20 minutes and was hemostatic. The plan [facility]. Psych Appearance: grossly normal Mental Status: mental status grossly normal Speech and Movement: speech and movement normal Results Last Vital Signs Temp 97.3 F L 11/16/23 13:55 Pulse 101 H 11/16/23 13:55 Resp 20 11/16/23 13:55 BP 174/149 H 11/16/23 13:55 Pulse Ox 97 11/16/23 13:55 Labs 11/16/23 14:15 11/16/23 14:15 Labs: Laboratory Results - last 24 hr 11/16/23 14:15 WBC 8.82 RBC 5.29 H Hgb 12.9 Hct 41.7 MCV 79 L MCH 24.4 L MCHC 30.9 L RDW 16.7 H Plt Count 270 MPV 9.2 Immature Gran % 0.2 Neutrophils % 54.7 Lymphocytes % 32.2 Monocytes % 10.2 Eosinophils % 2.0 Basophils % 0.7 Nucleated RBC % 0.0 Absolute Neutrophils 4.82 Absolute Lymphocytes 2.84 Absolute Monocytes 0.90 H Absolute Eosinophils 0.18 Absolute Basophils 0.06 PT 37.6 H INR 4.2 H* Sodium 143 Potassium 4.2 Chloride 105 Carbon Dioxide 31.8 Anion Gap 6.2 BUN 19 H Creatinine 1.0 Est GFR (CKD-EPI 2020) 56.25 Glucose 102 Calcium 10.1
== END 2023-11-16 16:47 | disposition home or self-care (01) ==
PROVIDERS: Emergency Provider Emergency Medicine; PCP Family Medicine
DX: N99.820 Postprocedural hemorrhage of a genitourinary system organ or structure following a genitourinary system procedure; I11.0 Hypertensive heart disease with heart failure; I50.32 Chronic diastolic (congestive) heart failure; I10 Essential (primary) hypertension; I48.0 Paroxysmal atrial fibrillation; R79.1 Abnormal coagulation profile; Z79.01 Long term (current) use of anticoagulants; Z87.42 Personal history of other diseases of the female genital tract
CPT/HCPCS: 80048; 99283; 85025; 85610; J2004; J3010

== ENCOUNTER 2023-11-17 12:40 | Outpatient (CLI) | payer MEDICARE, SELFPAY ==
[2023-11-17 12:28] LABS: INR 3.6 (0.9-1.1); Prothrombin Time 32.5 sec (9.1-11.1)
== END 2023-11-17 12:41 | disposition home or self-care (01) ==
LOC: LBO 12:40
PROVIDERS: Obstetrics & Gynecology; PCP Family Medicine; Visit Provider Obstetrics & Gynecology Gynecology
DX: R79.1 Abnormal coagulation profile (principal); N90.89 Other specified noninflammatory disorders of vulva and perineum
CPT/HCPCS: 36415; 85610

== ENCOUNTER → 2024-03-13 01:46 | Outpatient (CLI) | payer MEDICARE, SELFPAY ==
--- NOTE | 2024-03-13 | DI.MAMMO_ITS ---
Exam(s) MAMMO SCREENING EXAM: MAMMO SCREENING CLINICAL HISTORY: SCREENING, Z12.31. TECHNIQUE: Bilateral full field digital CC and MLO mammographic images were obtained with 3D tomosyn thesis and utilizing computer aided detection (CAD). COMPARISON: Prior mammograms were reviewed. FINDINGS: There has been no significant change in the appearance and distribution of the fibroglandular tissue. Numerous benign-appearing micro calcifications, macro calcifications, and microcalcification groups a re again noted. There are no new spiculated masses nor new malignant appearing microcalcification groups. There is no significant architectural distortion nor skin thickening-retraction. IMPRESSION: Stable benign-appearing findings. No radiographic evidence of malignancy. BI-RADS Category 2 - Benign Findings Breast Density - Category B - Scattered areas of fibroglandular density Breast density Category C or D implies that the patient has dense breast tissue. Dense breast tissue can make it harder to find cancer on a mammogram. Dense breast tissue is also associated with an incr eased risk of breast cancer. This information about the result of the mammogram report was provided to the patient to raise their awareness. Use this report when you speak with the patient about their risks for breast cancer, which includes their family history. At that time, you may recommend additional screening tests (Ultrasoun d or MRI) as these tests may add significant information. A negative radiographic report should not delay biopsy if a dominant or clinically suspicious mass is present. Up to ten percent of cancers are not identified on mammography. A negative report may reinforce clinical impression. Adenosis and dense breasts may obscure an underlying neoplasm. False positive reports average 6 to 10%. Patient will receive a letter notifying them of these results.
== END ==
PROVIDERS: PCP Family Medicine; Visit Provider Family Medicine
DX: Z12.31 Encounter for screening mammogram for malignant neoplasm of breast (principal); R92.8 Other abnormal and inconclusive findings on diagnostic imaging of breast
CPT/HCPCS: 77063; 77067

== ENCOUNTER 2024-05-06 08:06 | Outpatient (CLI) | payer MEDICARE, SELFPAY ==
--- NOTE | 2024-05-06 08:00 | RT.EKG_ITS ---
APPROVED REPORT Exam: Resting ECG Reason for Exam: paf Patient Location: O HR:103 bpm ECG Measurements Heart Rate 103 AXIS MI [id number] P [id number] QRSd 88 QRS 3 QT 336 T 19 QTc 440 Conclusion Atrial fibrillation Otherwise unremarkable
== END 2024-05-06 08:07 | disposition home or self-care (01) ==
LOC: DI.CARD 08:07
PROVIDERS: PCP Family Medicine; Visit Provider Internal Medicine Cardiovascular Disease
DX: I48.0 Paroxysmal atrial fibrillation (principal)
CPT/HCPCS: 93010

== ENCOUNTER → 2024-05-06 09:46 | Outpatient (BNVA) | payer MEDICARE, SELFPAY | PROVIDERS: PCP Family Medicine; Visit Provider Internal Medicine Cardiovascular Disease | DX: I48.21 Permanent atrial fibrillation (principal); I10 Essential (primary) hypertension; R06.02 Shortness of breath; R60.0 Localized edema | CPT/HCPCS: 93005; 99213 ==

== ENCOUNTER 2024-09-16 16:31 | Outpatient (REF) | payer MEDICARE, SELFPAY ==
[2024-09-16 21:10] LABS: HCT 41.8 % (36.0-46.0); HGB 12.8 g/dL (11.2-15.7); MCH 24.1 pg (27.0-33.0); MCHC 30.6 % (32.0-36.0); MCV 79 fL (80-95); MPV 9.9 fL (8.0-11.0); Platelet Count 268 10^3/uL (130-400); RBC 5.31 10^6/uL (3.93-5.22); RDW 17.3 % (11.7-14.6); RDW-SD 49.5 fL; WBC 7.68 10^3/uL (4.4-10.8)
[2024-09-16 21:29] LABS: Anion Gap 5.8 mmol/L (3-11); BUN 20 mg/dL (7-18); CO2 32.2 mmol/L (21.0-32.0); CREATININE 0.9 mg/dL (0.55-1.02); Calcium 9.8 mg/dL (8.5-10.1); Chloride 106 mmol/L (98-107); Estimated GFR 63.43 (mL/min/1.73m2); Glucose 95 mg/dL (74-106); NT-proBNP 1667 pg/mL (<300); Potassium 4.1 mmol/L (3.5-5.1); Sodium 144 mmol/L (136-145)
== END 2024-09-16 16:32 | disposition home or self-care (01) ==
LOC: NCHCN 16:31
PROVIDERS: PCP Family Medicine; Visit Provider Family Medicine
DX: D50.9 Iron deficiency anemia, unspecified (principal)
CPT/HCPCS: 80048; 85027; 83880

== ENCOUNTER 2024-10-31 12:59 | Outpatient (REF) | payer MEDICARE, SELFPAY ==
[2024-10-31 15:07] LABS: Anion Gap 9.1 mmol/L (3-11); BUN 20 mg/dL (7-18); CO2 27.9 mmol/L (21.0-32.0); CREATININE 0.8 mg/dL (0.55-1.02); Calcium 9.9 mg/dL (8.5-10.1); Chloride 108 mmol/L (98-107); Estimated GFR 73.06 (mL/min/1.73m2); Glucose 110 mg/dL (74-106); NT-proBNP 1796 pg/mL (<300); Potassium 3.7 mmol/L (3.5-5.1); Sodium 145 mmol/L (136-145)
== END 2024-10-31 13:00 | disposition home or self-care (01) ==
LOC: NCHCN 12:59
PROVIDERS: PCP Family Medicine; Visit Provider Family Medicine
DX: I50.9 Heart failure, unspecified (principal)
CPT/HCPCS: 80048; 83880

== ENCOUNTER → 2025-02-17 14:03 | Outpatient (BNVA) | payer MEDICARE, SELFPAY | PROVIDERS: PCP Family Medicine; Referring Provider Family Medicine; Visit Provider Podiatrist | DX: L60.3 Nail dystrophy (principal); B35.1 Tinea unguium; I73.89 Other specified peripheral vascular diseases; I87.2 Venous insufficiency (chronic) (peripheral); R60.0 Localized edema; R09.89 Other specified symptoms and signs involving the circulatory and respiratory systems; I83.93 Asymptomatic varicose veins of bilateral lower extremities; L60.2 Onychogryphosis; L60.8 Other nail disorders | CPT/HCPCS: 11721 ==

== ENCOUNTER 2025-03-24 18:12 | Outpatient (REF) | payer MEDICARE, SELFPAY ==
[2025-03-24 22:40] LABS: HCT 43.9 % (36.0-46.0); HGB 13.9 g/dL (11.2-15.7); MCH 25.4 pg (27.0-33.0); MCHC 31.7 % (32.0-36.0); MCV 80 fL (80-95); MPV 10.2 fL (8.0-11.0); Platelet Count 265 10^3/uL (130-400); RBC 5.48 10^6/uL (3.93-5.22); RDW 17.2 % (11.7-14.6); RDW-SD 49.7 fL; WBC 7.54 10^3/uL (4.4-10.8)
[2025-03-24 22:46] LABS: Iron 30 ug/dL (50-170)
[2025-03-24 22:48] LABS: ALT 25 U/L (14-59); AST 19 U/L (15-37); Albumin 3.8 g/dL (3.4-5.0); Alkaline Phosphatase 131 U/L (46-116); Anion Gap 7.6 mmol/L (3-11); BUN 23 mg/dL (7-18); Bilirubin, Total 1.0 mg/dL (0.2-1.0); CO2 30.4 mmol/L (21.0-32.0); Calcium 9.6 mg/dL (8.5-10.1); Chloride 104 mmol/L (98-107); Estimated GFR 72.61 (mL/min/1.73m2); Glucose 92 mg/dL (74-106); Potassium 4.0 mmol/L (3.5-5.1); Sodium 142 mmol/L (136-145); Total Protein 7.0 g/dL (6.4-8.2)
== END 2025-03-24 18:13 | disposition home or self-care (01) ==
LOC: NCHCN 18:12
PROVIDERS: PCP Family Medicine; Visit Provider Family Medicine
DX: I50.9 Heart failure, unspecified (principal); D50.9 Iron deficiency anemia, unspecified
CPT/HCPCS: 80053; 85027; 83540

== ENCOUNTER 2025-04-21 04:05 | Outpatient (RCR) | payer MEDICARE, SELFPAY ==
[2025-04-21] MEDS: SODIUM FER. GLUC./SUC. 125 MG in Normal Saline 100 ML 110 MG IVPB (09:09)
[2025-04-21] MEDS: Normal Saline Flush 10 ML SYR IVP (09:10)
== END 2025-05-11 23:59 | disposition home or self-care (01) ==
LOC: INF 04:05
PROVIDERS: PCP Family Medicine; Visit Provider Nurse Practitioner Acute Care
DX: D50.9 Iron deficiency anemia, unspecified (principal)
CPT/HCPCS: 96365; J2916

== ENCOUNTER 2025-04-25 21:34 | Outpatient (REF) | payer MEDICARE, SELFPAY ==
[2025-04-25 15:23] LABS: Iron 31 ug/dL (50-170)
== END 2025-04-25 21:35 | disposition home or self-care (01) ==
LOC: NCHCN 21:34
PROVIDERS: PCP Family Medicine; Visit Provider Family Medicine
DX: D50.9 Iron deficiency anemia, unspecified (principal)
CPT/HCPCS: 83540

== ENCOUNTER → 2025-05-05 09:44 | Outpatient (BNVA) | payer MEDICARE, SELFPAY | PROVIDERS: PCP Family Medicine; Referring Provider Family Medicine; Visit Provider Registered Nurse | DX: I48.21 Permanent atrial fibrillation (principal); R60.0 Localized edema; I10 Essential (primary) hypertension | CPT/HCPCS: 99214 ==

== ENCOUNTER 2025-05-23 16:00 | Outpatient (REF) | payer MEDICARE, SELFPAY ==
[2025-05-23 14:41] LABS: HCT 44.5 % (36.0-46.0); HGB 13.8 g/dL (11.2-15.7); MCH 25.5 pg (27.0-33.0); MCHC 31.0 % (32.0-36.0); MCV 82 fL (80-95); MPV 10.5 fL (8.0-11.0); Platelet Count 239 10^3/uL (130-400); RBC 5.42 10^6/uL (3.93-5.22); RDW 17.8 % (11.7-14.6); RDW-SD 52.0 fL; WBC 5.73 10^3/uL (4.4-10.8)
[2025-05-23 15:16] LABS: Iron 35 ug/dL (50-170); Total Iron Binding Capacity 207 ug/dL (250-450); Transferrin Sat 17 % (15-50)
[2025-05-23 15:25] LABS: Ferritin 129 ng/mL (8-252)
== END 2025-05-23 16:01 | disposition home or self-care (01) ==
LOC: NCHCN 16:00
PROVIDERS: PCP Family Medicine; Visit Provider Family Medicine
DX: D50.9 Iron deficiency anemia, unspecified (principal)
CPT/HCPCS: 85027; 82728; 83540; 83550